=== PATIENT | female | born 1980 | race Caucasian/White ===

== ENCOUNTER → 2020-10-20 15:29 | Outpatient (BNVA) | payer OTHER, SELFPAY | PROVIDERS: PCP Internal Medicine; Visit Provider Student in an Organized Health Care Education/Training Program | DX: M45.0 Ankylosing spondylitis of multiple sites in spine (principal); M79.7 Fibromyalgia | CPT/HCPCS: 99212 ==

== ENCOUNTER → 2021-01-24 16:05 | Outpatient (BNVA) | payer OTHER, SELFPAY | PROVIDERS: Visit Provider Student in an Organized Health Care Education/Training Program | DX: M45.0 Ankylosing spondylitis of multiple sites in spine (principal); M79.7 Fibromyalgia; G89.29 Other chronic pain | CPT/HCPCS: 99212 ==

== ENCOUNTER → 2021-07-25 13:00 | Outpatient (BNVA) | payer OTHER, SELFPAY | PROVIDERS: PCP Internal Medicine; Visit Provider Nurse Practitioner Family | DX: M45.0 Ankylosing spondylitis of multiple sites in spine (principal); M79.7 Fibromyalgia; G89.29 Other chronic pain | CPT/HCPCS: 99212 ==

== ENCOUNTER 2021-09-17 12:34 | Outpatient (REF) | payer OTHER, SELFPAY ==
[2021-09-17 12:51] LABS: MANUAL DIFF FLAG NO
[2021-09-17 13:04] LABS: Basophils Absolute Auto 0.1 X10*3/uL (0.0-0.2); Basophils Percent Auto 1.4 % (0-2); Eosinophils Absolute Auto 0.1 X10*3/uL (0.0-0.4); Eosinophils Percent Auto 0.8 % (0-4); Hematocrit 38.1 % (37.0-47.0); Hemoglobin 12.4 g/dl (12.0-16.0); Imm Gran Abs Auto 0.03 X10*3/uL (0.00-0.03); Imm Gran Pct Auto 0.3 % (0.0-0.4); Lymphocytes Absolute Auto 3.1 X10*3/uL (1.2-4.9); Lymphocytes Percent Auto 33.4 % (20-40); Mean Corpuscular HGB Conc 32.5 g/dl (31.0-35.0); Mean Corpuscular Hemoglobin 30.7 pg (27.0-33.0); Mean Corpuscular Volume 94.3 fL (80.0-98.0); Mean Platelet Volume 10.7 fL (9.4-12.3); Monocytes Absolute Auto 0.8 X10*3/uL (0.1-1.2); Monocytes Percent Auto 8.7 % (2-11); Neutrophils Absolute Auto 5.1 x10*3/uL (2.0-8.3); Neutrophils Percent Auto 55.4 % (45-73); Platelet Count 314 X10*3/uL (160-400); Red Blood Count 4.04 X10*6/uL (4.20-5.50); Red Cell Distribution Width 13.9 % (11.0-16.0); White Blood Count 9.3 X10*3/uL (4.8-10.8)
[2021-09-17 13:46] LABS: Alanine Aminotransferase 15 U/L (0-31); Albumin Level 4.3 g/dL (3.5-5.0); Alkaline Phosphatase 88 U/L (39-117); Anion Gap 18 (12-20); Aspartate Amino Transferase 21 U/L (5-31); Bilirubin Total 0.4 mg/dL (0.0-1.0); Blood Urea Nitrogen 13 mg/dL (9-16); C Reactive Protein 0.86 mg/dL (< or = 0.50); Calcium 9.5 mg/dL (8.4-10.2); Carbon Dioxide 23 mmol/L (22-29); Chloride 105 mmol/L (96-108); Estimated Glomerular Filt Rate > 60; Glucose Random 227 mg/dL (60-115); Potassium 3.8 mmol/L (3.3-5.1); Sodium 142 mmol/L (135-145); Total Protein 7.5 g/dL (6.5-8.0)
[2021-09-17 13:49] LABS: Erythrocyte Sedimentation Rate 33 MM/HR (0-20)
== END 2021-09-17 12:35 | disposition home or self-care (01) ==
LOC: HO.LAB 12:34
PROVIDERS: PCP Nurse Practitioner Family; Visit Provider Nurse Practitioner Family
DX: M45.0 Ankylosing spondylitis of multiple sites in spine (principal)
CPT/HCPCS: 36415; 80053; 85025; 85652; 86140

== ENCOUNTER 2022-04-08 13:46 | Outpatient (REF) | payer OTHER, SELFPAY ==
[2022-04-08 14:06] LABS: MANUAL DIFF FLAG NO
[2022-04-08 14:47] LABS: Basophils Absolute Auto 0.2 X10*3/uL (0.0-0.2); Basophils Percent Auto 0.8 % (0-2); Eosinophils Percent Auto 0.2 % (0-4); Hematocrit 46.7 % (37.0-47.0); Hemoglobin 15.1 g/dl (12.0-16.0); Imm Gran Abs Auto 0.07 X10*3/uL (0.00-0.03); Imm Gran Pct Auto 0.4 % (0.0-0.4); Lymphocytes Percent Auto 20.5 % (20-40); Mean Corpuscular HGB Conc 32.3 g/dl (31.0-35.0); Mean Corpuscular Hemoglobin 30.3 pg (27.0-33.0); Mean Corpuscular Volume 93.6 fL (80.0-98.0); Mean Platelet Volume 11.4 fL (9.4-12.3); Monocytes Absolute Auto 1.4 X10*3/uL (0.1-1.2); Monocytes Percent Auto 6.9 % (2-11); Neutrophils Percent Auto 71.2 % (45-73); Platelet Count 420 X10*3/uL (160-400); Red Blood Count 4.99 X10*6/uL (4.20-5.50); Red Cell Distribution Width 13.1 % (11.0-16.0); White Blood Count 19.6 X10*3/uL (4.8-10.8)
[2022-04-08 15:32] LABS: Erythrocyte Sedimentation Rate 29 MM/HR (0-20)
[2022-04-08 16:14] LABS: Alanine Aminotransferase 13 U/L (0-31); Aspartate Amino Transferase 13 U/L (5-31); C Reactive Protein 1.49 mg/dL (< or = 0.50); Estimated Glomerular Filt Rate 34
== END 2022-04-08 13:47 | disposition home or self-care (01) ==
LOC: HO.LAB 13:46
PROVIDERS: PCP Nurse Practitioner Family; Visit Provider Nurse Practitioner Family
DX: M45.0 Ankylosing spondylitis of multiple sites in spine (principal); M79.7 Fibromyalgia
CPT/HCPCS: 36415; 82565; 84450; 84460; 85025; 85652; 86140; 99212

== ENCOUNTER 2022-04-08 16:02 | Emergency (ER) | payer OTHER, SELFPAY ==
--- NOTE | ~2022-04-08 | CT_ITS ---
EXAMINATION: CT ABDOMEN AND PELVIS WITHOUT CONTRAST CLINICAL INFORMATION: Abdominal pain, diarrhea COMPARISON: None TECHNIQUE: Multidetector volumetric imaging was performed from the superior aspect of the liver through the pubic symphysis. Sagittal and coronal reformatted images were obtained on the technologist's workstation. This CT examination was performed using dose optimization techniques as appropriate, variously including the following: *Automated exposure control *Adjustment of mA and/or kV according to patient size (this includes techniques or standardized protocols for targeted exams where dose is matched to indication/reason for exam; i.e. extremities or head) *Use of iterative reconstruction technique DLP: 418 mGy-cm FINDINGS: LUNG BASES: The visualized lung bases are unremarkable. LIVER, GALLBLADDER, AND BILIARY TREE: The liver is normal in size, shape, and attenuation. No focal hepatic lesion or biliary ductal dilatation is present. The gallbladder is unremarkable with no evidence of radiopaque gallstones, gallbladder wall thickening, or obvious pericholecystic inflammatory changes. PANCREAS: Unremarkable. SPLEEN: Unremarkable. ADRENAL GLANDS: Unremarkable. KIDNEYS AND URETERS: The kidneys are normal in size, shape, and attenuation. No hydronephrosis, hydroureter, seen. No perinephric stranding. There is a 3 mm nonobstructing calcified stone in the upper pole left kidney. BLADDER: Unremarkable. GASTROINTESTINAL TRACT: The small and large bowel are unremarkable. The appendix is unremarkable. ABDOMINAL WALL: No significant hernia is appreciated. LYMPH NODES: Normal. VASCULAR: Unremarkable. PELVIC VISCERA: The uterus and adnexa are unremarkable. OSSEOUS STRUCTURES: Unremarkable. CT/CT abdomen pelvis wo IV con IMPRESSION: No acute inflammatory or infectious process Left nephrolithiasis
[2022-04-08 16:29] VITALS: BP 98/54; PULSE 110; O2SAT 95
[2022-04-08 16:34] VITALS: BP 138/72; PULSE 94; RESP 18; TEMP 36.5; O2SAT 99; BMI 25.7
--- NOTE | 2022-04-08 16:47 | ED_ITS ---
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 patient also states that she has taken her pain medication but the last dose was at noon. As per EMS her glucose-60 Related Data Home Medications Medication Instructions Recorded Confirmed atorvastatin 20 mg tablet 20 mg PO DAILY 05/30/20 04/08/22 diazepam 10 mg tablet 10 mg PO BID PRN 05/30/20 04/08/22 dicyclomine 10 mg capsule 10 mg PO QID 05/30/20 04/08/22 insulin aspart U-100 100 unit/mL 1 sliding scale dose subcut 05/30/20 04/08/22 subcutaneous solution (Novolog USEASDIRECTD U-100 Insulin aspart) loratadine 10 mg capsule 10 mg PO DAILY 05/30/20 04/08/22 losartan 100 mg tablet 100 mg PO DAILY 05/30/20 04/08/22 pseudoephedrine HCl 30 mg tablet 30 mg PO Q4-6H PRN 05/30/20 04/08/22 duloxetine 60 mg capsule,delayed 120 mg PO DAILY 07/25/21 04/08/22 release (Cymbalta) omeprazole 20 mg capsule,delayed 20 mg PO BID 07/25/21 04/08/22 release pregabalin 225 mg capsule (Lyrica) 225 mg PO BID 01/21/22 04/08/22 dextroamphetamine-amphetamine ER 20 mg PO DAILY 04/08/22 04/08/22 20 mg 24hr capsule,extend release (Adderall XR) fluticasone propionate 50 1 spray intranasal DAILY PRN 04/08/22 04/08/22 mcg/actuation nasal spray,suspension insulin glargine 100 unit/mL 27 unit subcut DAILY 04/08/22 04/08/22 subcutaneous solution (Lantus U-100 Insulin) Previous Rx's Medication Instructions Recorded tramadol 37.5 mg-acetaminophen 325 2 tab PO Q8H PRN pain #168 tabs 02/05/22 mg tablet (Ultracet) leflunomide 20 mg tablet 20 mg PO DAILY #28 tabs 03/13/22 tizanidine 4 mg tablet 4 mg PO TID PRN for muscle spasm 03/19/22 #90 tabs certolizumab pegol 400 mg/2 mL 200 mg subcut Q2W #1 ea 03/26/22 (200 mg/mL x2) subcutaneous syringe kit (Cimzia) nabumetone 750 mg tablet 750 mg PO BID #60 tabs 04/01/22 Allergies Allergy/AdvReac Type Severity Reaction Status Date / Time lisinopril [LISINOPRIL] Allergy Mild COUGH Verified 04/08/22 14:44 aspirin [ASA] Allergy Unknown GI UPSET Verified 04/08/22 14:44 Review of Systems Review of Systems: pertinent positives and negatives as stated in HPI 10 point review of systems is otherwise negative. PMFSH Past Medical History Source: nursing notes reviewed Medical History Ankylosing spondylitis Fibromyalgia Surgical History H/O oral surgery H/O wisdom tooth extraction Family History Family History Father HTN (hypertension) Mother Colitis Sister Fibromyalgia Social History Social History Alcohol intake: never Patient Tobacco Use Status: Former Tobacco user Advance Directives: No Advance Directives Information Provided: No Patient : No Physical Exam ED Vital Signs: Vital Signs - 24 hr 04/08/22 16:34 04/08/22 19:14 04/08/22 21:32 Temperature 97.7 F Pulse Rate 94 96 84 Respiratory Rate 18 18 18 Blood Pressure 138/72 126/59 L 119/50 L Pulse Oximetry 99 98 96 Oxygen Delivery Method Room Air Room Air Room Air BMI result Body Mass Index 25.7 VITAL SIGNS: Reviewed. GENERAL: Well developed, well nourished, in no acute distress. HEAD: Normocephalic/atraumatic EYES: PERRLA, EOMI EARS: Ext canals without abnormality OROPHARYNX: no oral lesions noted, posterior pharynx clear, dry mucosa NECK: Supple, no adenopathy LUNGS: Normal breath sounds. No adventitious sounds or accessory muscle use. SpO2<99> CARDIOVASCULAR: Regular rate and rhythm without noted murmurs, no JVD or lower extremity edema. ABDOMEN: Soft, non-tender, non-distended with bowel sounds. MUSCULOSKELETAL: No tenderness, deformities, or effusions noted on gross inspection. EXTREMITIES: No cyanosis, clubbing or edema. SKIN: Inspection of the skin reveals no rashes NEUROLOGIC: Alert and oriented x 4. Strength and sensation to light touch were grossly intact x 4. Course Course Course Narrative: 41-year-old female with history and clinical presentation consistent with symptoms most likely due to low blood sugar although patient does not feel that this is accurate. She is noted to have been recently found to have a leukocytosis on her lab work and denies any steroid use. Otherwise she denies any fever, chills she does states that she has had some diarrhea but says that this happens intermittently due to her IBS. Review of all investigations negative for acute evidence infection in the abdomen, urine, urine test is negative and patient denies any new cough/shortness of breath and has remained afebrile throughout her stay. She has received IV fluids and lab work is otherwise without acute findings from baseline. Obtained of procalcitonin to further evaluate the noted leukocytosis, this was not consistent with a bacterial etiology and suspect that the elevated white blood cells are secondary to stress response, possibly patient's nausea and vomiting. She was informed of all results and strongly encouraged to follow-up with her primary care provider and further evaluate the leukocytosis. Medical Decision Making Lab Data Result diagrams: 04/08/22 16:40 04/08/22 16:40 Labs: Lab Results 04/08/22 04/08/22 04/08/22 Range/Units 16:40 16:40 16:40 WBC 22.8 H (4.8-10.8) X10*3/uL RBC 4.82 (4.20-5.50) X10*6/uL Hgb 14.7 (12.0-16.0) g/dl Hct 44.6 (37.0-47.0) % MCV 92.5 (80.0-98.0) fL MCH 30.5 (27.0-33.0) pg MCHC 33.0 (31.0-35.0) g/dl RDW 13.0 (11.0-16.0) % Plt Count 367 (160-400) X10*3/uL MPV 11.4 (9.4-12.3) fL Immature Gran % (Auto) 0.6 H (0.0-0.4) % Neut % (Auto) 81.5 H (45-73) % Lymph % (Auto) 9.3 L (20-40) % [place] % (Auto) 7.8 (2-11) % Eos % (Auto) 0.1 (0-4) % Baso % (Auto) 0.7 (0-2) % Lymph # (Auto) 2.1 (1.2-4.9) X10*3/uL [place] # (Auto) 1.8 H (0.1-1.2) X10*3/uL Eos # (Auto) 0.0 (0.0-0.4) X10*3/uL Baso # (Auto) 0.2 (0.0-0.2) X10*3/uL Abs Immat Gran (auto) 0.13 H (0.00-0.03) X10*3/uL Absolute Neuts (auto) 18.6 H (2.0-8.3) x10*3/uL Absolute Nucleated RBC 0.000 (0.0-0.012) X10*3/uL Nucleated RBC % (auto) 0.0 (0.0-0.2) /100WBC Smear Tech's Comments VERIFIED D-Dimer High Sensitivty NG/ML Sodium 137 (135-145) mmol/L Potassium 4.1 (3.3-5.1) mmol/L Chloride 99 (96-108) mmol/L Carbon Dioxide 23 (22-29) mmol/L Anion Gap 19 (12-20) BUN 24 H D (9-16) mg/dL Creatinine 1.86 H (0.5-1.4) mg/dL Estim Creat Clear Calc 32.1 Estimated GFR 30 POC Glucose (60-115) mg/dL Random Glucose 125 H (60-115) mg/dL Lactic Acid (0.5-2.0) mmol/L Calcium 9.6 (8.4-10.2) mg/dL Magnesium 2.1 (1.6-2.6) mg/dL Total Bilirubin 0.4 (0.0-1.0) mg/dL AST 14 (5-31) U/L ALT 14 (0-31) U/L Alkaline Phosphatase 98 (39-117) U/L Troponin I High Sens (<3.5-17.0) ng/L Total Protein 8.4 H (6.5-8.0) g/dL Albumin 4.7 (3.5-5.0) g/dL Procalcitonin 0.11 ng/mL Urine Color Urine Appearance Urine pH (5.0-9.0) Ur Specific [place] (1.005-1.025) Urine Protein (Neg-Trace) mg/dL Urine Glucose (UA) (Negative) mg/dL Urine Ketones (Negative) mg/dL Urine Blood (Negative) Urine Nitrite (Negative) Ur Leukocyte Esterase (Negative) Urine RBC (0-2) /HPF Urine WBC (0-5) /HPF Ur Squamous Epith Cells (0-2) /HPF Urine Bacteria (None Seen) Hyaline Casts (0-2) /LPF Urine Test (NEGATIVE) COVID-19 ([facility] CARLOS) (Negative) COVID-19 Clin Com 04/08/22 04/08/22 04/08/22 Range/Units 16:40 17:01 17:10 WBC (4.8-10.8) X10*3/uL RBC (4.20-5.50) X10*6/uL Hgb (12.0-16.0) g/dl Hct (37.0-47.0) % MCV (80.0-98.0) fL MCH (27.0-33.0) pg MCHC (31.0-35.0) g/dl RDW (11.0-16.0) % Plt Count (160-400) X10*3/uL MPV (9.4-12.3) fL Immature Gran % (Auto) (0.0-0.4) % Neut % (Auto) (45-73) % Lymph % (Auto) (20-40) % [place] % (Auto) (2-11) % Eos % (Auto) (0-4) % Baso % (Auto) (0-2) % Lymph # (Auto) (1.2-4.9) X10*3/uL [place] # (Auto) (0.1-1.2) X10*3/uL Eos # (Auto) (0.0-0.4) X10*3/uL Baso # (Auto) (0.0-0.2) X10*3/uL Abs Immat Gran (auto) (0.00-0.03) X10*3/uL Absolute Neuts (auto) (2.0-8.3) x10*3/uL Absolute Nucleated RBC (0.0-0.012) X10*3/uL Nucleated RBC % (auto) (0.0-0.2) /100WBC Smear Tech's Comments D-Dimer High Sensitivty NG/ML Sodium (135-145) mmol/L Potassium (3.3-5.1) mmol/L Chloride (96-108) mmol/L Carbon Dioxide (22-29) mmol/L Anion Gap (12-20) BUN (9-16) mg/dL Creatinine (0.5-1.4) mg/dL Estim Creat Clear Calc Estimated GFR POC Glucose 108 (60-115) mg/dL Random Glucose (60-115) mg/dL Lactic Acid 1.2 (0.5-2.0) mmol/L Calcium (8.4-10.2) mg/dL Magnesium (1.6-2.6) mg/dL Total Bilirubin (0.0-1.0) mg/dL AST (5-31) U/L ALT (0-31) U/L Alkaline Phosphatase (39-117) U/L Troponin I High Sens 5.4 (<3.5-17.0) ng/L Total Protein (6.5-8.0) g/dL Albumin (3.5-5.0) g/dL Procalcitonin ng/mL Urine Color Urine Appearance Urine pH (5.0-9.0) Ur Specific [place] (1.005-1.025) Urine Protein (Neg-Trace) mg/dL Urine Glucose (UA) (Negative) mg/dL Urine Ketones (Negative) mg/dL Urine Blood (Negative) Urine Nitrite (Negative) Ur Leukocyte Esterase (Negative) Urine RBC (0-2) /HPF Urine WBC (0-5) /HPF Ur Squamous Epith Cells (0-2) /HPF Urine Bacteria (None Seen) Hyaline Casts (0-2) /LPF Urine Test (NEGATIVE) COVID-19 ([facility]IS CRALOS) (Negative) COVID-19 Clin Com 04/08/22 04/08/22 04/08/22 Range/Units 17:23 18:46 18:46 WBC (4.8-10.8) X10*3/uL RBC (4.20-5.50) X10*6/uL Hgb (12.0-16.0) g/dl Hct (37.0-47.0) % MCV (80.0-98.0) fL MCH (27.0-33.0) pg MCHC (31.0-35.0) g/dl RDW (11.0-16.0) % Plt Count (160-400) X10*3/uL MPV (9.4-12.3) fL Immature Gran % (Auto) (0.0-0.4) % Neut % (Auto) (45-73) % Lymph % (Auto) (20-40) % [place] % (Auto) (2-11) % Eos % (Auto) (0-4) % Baso % (Auto) (0-2) % Lymph # (Auto) (1.2-4.9) X10*3/uL [place] # (Auto) (0.1-1.2) X10*3/uL Eos # (Auto) (0.0-0.4) X10*3/uL Baso # (Auto) (0.0-0.2) X10*3/uL Abs Immat Gran (auto) (0.00-0.03) X10*3/uL Absolute Neuts (auto) (2.0-8.3) x10*3/uL Absolute Nucleated RBC (0.0-0.012) X10*3/uL Nucleated RBC % (auto) (0.0-0.2) /100WBC Smear Tech's Comments D-Dimer High Sensitivty NG/ML Sodium (135-145) mmol/L Potassium (3.3-5.1) mmol/L Chloride (96-108) mmol/L Carbon Dioxide (22-29) mmol/L Anion Gap (12-20) BUN (9-16) mg/dL Creatinine (0.5-1.4) mg/dL Estim Creat Clear Calc Estimated GFR POC Glucose (60-115) mg/dL Random Glucose (60-115) mg/dL Lactic Acid (0.5-2.0) mmol/L Calcium (8.4-10.2) mg/dL Magnesium (1.6-2.6) mg/dL Total Bilirubin (0.0-1.0) mg/dL AST (5-31) U/L ALT (0-31) U/L Alkaline Phosphatase (39-117) U/L Troponin I High Sens (<3.5-17.0) ng/L Total Protein (6.5-8.0) g/dL Albumin (3.5-5.0) g/dL Procalcitonin ng/mL Urine Color Dark Yellow Urine Appearance Cloudy Urine pH 5.0 (5.0-9.0) Ur Specific [place] >= 1.030 H (1.005-1.025) Urine Protein 100 (2+) H (Neg-Trace) mg/dL Urine Glucose (UA) 500 H (Negative) mg/dL Urine Ketones 15 (Negative) mg/dL Urine Blood Negative (Negative) Urine Nitrite Negative (Negative) Ur Leukocyte Esterase Trace H (Negative) Urine RBC 0-2 (0-2) /HPF Urine WBC 0-5 (0-5) /HPF Ur Squamous Epith Cells 11-20 (0-2) /HPF Urine Bacteria 4+ (None Seen) Hyaline Casts 3-5 (0-2) /LPF Urine Test NEGATIVE (NEGATIVE) COVID-19 ([facility]IS CARLOS) Negative (Negative) COVID-19 Clin Com See Note 04/08/22 04/08/22 Range/Units 19:23 21:31 WBC (4.8-10.8) X10*3/uL RBC (4.20-5.50) X10*6/uL Hgb (12.0-16.0) g/dl Hct (37.0-47.0) % MCV (80.0-98.0) fL MCH (27.0-33.0) pg MCHC (31.0-35.0) g/dl RDW (11.0-16.0) % Plt Count (160-400) X10*3/uL MPV (9.4-12.3) fL Immature Gran % (Auto) (0.0-0.4) % Neut % (Auto) (45-73) % Lymph % (Auto) (20-40) % [place] % (Auto) (2-11) % Eos % (Auto) (0-4) % Baso % (Auto) (0-2) % Lymph # (Auto) (1.2-4.9) X10*3/uL [place] # (Auto) (0.1-1.2) X10*3/uL Eos # (Auto) (0.0-0.4) X10*3/uL Baso # (Auto) (0.0-0.2) X10*3/uL Abs Immat Gran (auto) (0.00-0.03) X10*3/uL Absolute Neuts (auto) (2.0-8.3) x10*3/uL Absolute Nucleated RBC (0.0-0.012) X10*3/uL Nucleated RBC % (auto) (0.0-0.2) /100WBC Smear Tech's Comments D-Dimer High Sensitivty 218 NG/ML Sodium (135-145) mmol/L Potassium (3.3-5.1) mmol/L Chloride (96-108) mmol/L Carbon Dioxide (22-29) mmol/L Anion Gap (12-20) BUN (9-16) mg/dL Creatinine (0.5-1.4) mg/dL Estim Creat Clear Calc Estimated GFR POC Glucose 210 H (60-115) mg/dL Random Glucose (60-115) mg/dL Lactic Acid (0.5-2.0) mmol/L Calcium (8.4-10.2) mg/dL Magnesium (1.6-2.6) mg/dL Total Bilirubin (0.0-1.0) mg/dL AST (5-31) U/L ALT (0-31) U/L Alkaline Phosphatase (39-117) U/L Troponin I High Sens (<3.5-17.0) ng/L Total Protein (6.5-8.0) g/dL Albumin (3.5-5.0) g/dL Procalcitonin ng/mL Urine Color Urine Appearance Urine pH (5.0-9.0) Ur Specific [place] (1.005-1.025) Urine Protein (Neg-Trace) mg/dL Urine Glucose (UA) (Negative) mg/dL Urine Ketones (Negative) mg/dL Urine Blood (Negative) Urine Nitrite (Negative) Ur Leukocyte Esterase (Negative) Urine RBC (0-2) /HPF Urine WBC (0-5) /HPF Ur Squamous Epith Cells (0-2) /HPF Urine Bacteria (None Seen) Hyaline Casts (0-2) /LPF Urine Test (NEGATIVE) COVID-19 ([facility] CARLOS) (Negative) COVID-19 Clin Com ECG Data Attestation: I personally reviewed and interpreted this ECG as follows: Prior ECG tracings: not available for review Interpretation: NSR. HR-93, no STEMI but ST depressions in lateral distribution, VT/QRS/QTc wnl. Discharge Plan Discharge Clinical Impression: Low blood sugar, Ankylosing spondylitis, Fibromyalgia, Chronic pain Patient Disposition: Home, Self-Care Instructions: Hypoglycemia in a Person with Diabetes (ED) Additional Instructions: 1. Resume all home medications as prescribed. 2. It is highly recommended that you follow-up with your primary care provider for further investigation regarding the elevated white blood cell count. In addition, your primary care provider can follow-up on the culture results. Return to the ER for worsening symptoms. Prescriptions: No Action pregabalin [Lyrica] 225 mg capsule 225 mg PO BID tramadol-acetaminophen [Ultracet] 37.5-325 mg tablet 2 tab PO Q8H PRN (Reason: pain) Qty: 168 1RF Rx Instructions: take 1-2 tabs every 8 hours as needed leflunomide 20 mg tablet 20 mg PO DAILY Qty: 28 0RF tizanidine 4 mg tablet 4 mg PO TID PRN (Reason: for muscle spasm) Qty: 90 0RF Cimzia 400 mg/2 mL (200 mg/mL x 2) syringe kit 200 mg subcut Q2W Qty: 1 0RF nabumetone 750 mg tablet 750 mg PO BID Qty: 60 0RF dicyclomine 10 mg capsule 10 mg PO QID losartan 100 mg tablet 100 mg PO DAILY insulin aspart U-100 [Novolog U-100 Insulin aspart] 100 unit/mL solution 1 sliding scale dose subcut USEASDIRECTD atorvastatin 20 mg tablet 20 mg PO DAILY diazepam 10 mg tablet 10 mg PO BID PRN loratadine 10 mg capsule 10 mg PO DAILY pseudoephedrine HCl 30 mg tablet 30 mg PO Q4-6H PRN Rx Instructions: DNExceed 4 doses/24h duloxetine [Cymbalta] 60 mg capsule,delayed release(DR/EC) 120 mg PO DAILY omeprazole 20 mg capsule,delayed release(DR/EC) 20 mg PO BID fluticasone propionate 50 mcg/actuation spray,suspension 1 spray intranasal DAILY PRN Rx Instructions: administer into each nostril dextroamphetamine-amphetamine [Adderall XR] 20 mg capsule,extended release 24hr 20 mg PO DAILY insulin glargine [Lantus U-100 Insulin] 100 unit/mL solution 27 unit subcut DAILY Referrals: Karen Kolb NP [Primary Care Provider] -
[2022-04-08 17:08] LABS: Basophils Absolute Auto 0.2 X10*3/uL (0.0-0.2); Basophils Percent Auto 0.7 % (0-2); Eosinophils Percent Auto 0.1 % (0-4); Hematocrit 44.6 % (37.0-47.0); Hemoglobin 14.7 g/dl (12.0-16.0); Imm Gran Abs Auto 0.13 X10*3/uL (0.00-0.03); Imm Gran Pct Auto 0.6 % (0.0-0.4); Lymphocytes Absolute Auto 2.1 X10*3/uL (1.2-4.9); Lymphocytes Percent Auto 9.3 % (20-40); MANUAL DIFF FLAG SCAN; Mean Corpuscular Hemoglobin 30.5 pg (27.0-33.0); Mean Corpuscular Volume 92.5 fL (80.0-98.0); Mean Platelet Volume 11.4 fL (9.4-12.3); Monocytes Absolute Auto 1.8 X10*3/uL (0.1-1.2); Monocytes Percent Auto 7.8 % (2-11); Neutrophils Absolute Auto 18.6 x10*3/uL (2.0-8.3); Neutrophils Percent Auto 81.5 % (45-73); Platelet Count 367 X10*3/uL (160-400); Red Blood Count 4.82 X10*6/uL (4.20-5.50); SCAN SMEAR FLAG 1; White Blood Count 22.8 X10*3/uL (4.8-10.8)
[2022-04-08 17:13] LABS: Glucose, Whole Blood 108 mg/dL (60-115)
[2022-04-08 17:18] LABS: Alanine Aminotransferase 14 U/L (0-31); Albumin Level 4.7 g/dL (3.5-5.0); Alkaline Phosphatase 98 U/L (39-117); Anion Gap 19 (12-20); Aspartate Amino Transferase 14 U/L (5-31); Bilirubin Total 0.4 mg/dL (0.0-1.0); Blood Urea Nitrogen 24 mg/dL (9-16); Calcium 9.6 mg/dL (8.4-10.2); Carbon Dioxide 23 mmol/L (22-29); Chloride 99 mmol/L (96-108); Creatinine Clr Calc Pharmacy 32.1; Estimated Glomerular Filt Rate 30; Glucose Random 125 mg/dL (60-115); Magnesium 2.1 mg/dL (1.6-2.6); Potassium 4.1 mmol/L (3.3-5.1); Sodium 137 mmol/L (135-145); Total Protein 8.4 g/dL (6.5-8.0)
--- NOTE | 2022-04-08 17:24 | ECG_ITS ---
Test Reason : MED SIDE EFFECTS Blood Pressure : / mmHG Vent. Rate : 093 BPM Atrial Rate : 093 BPM P-R Int : 152 ms QRS Dur : 084 ms QT Int : 362 ms P-R-T Axes : 052 056 135 degrees QTc Int : 450 ms Normal sinus rhythm Cannot rule out Anterior infarct , age undetermined T wave abnormality, consider lateral ischemia Abnormal ECG No previous ECGs available Referred By: Jacque Last Electronically Signed By:KACI GUADALUPE
[2022-04-08] MEDS: 0.9 % Sodium Chloride 1,000 ML 999 ML IV ×2 (17:25→21:17)
[2022-04-08 17:28] LABS: Lactic Acid 1.2 mmol/L (0.5-2.0)
[2022-04-08] MEDS: ondansetron HCL 4 MG/2 ML VIAL IVPUSH (17:33)
[2022-04-08 17:42] LABS: SLIDE REVIEW VERIFIED
[2022-04-08 17:56] LABS: IDNOW Serial# 16C4AD1C
[2022-04-08 17:57] LABS: COVID-19 Test Negative (Negative)
[2022-04-08] MEDS: cefEPime HCl 1 GM in 0.9 % Sodium Chloride 50 ML IV (18:48)
[2022-04-08 19:00] LABS: Appearance Urine Cloudy; Color Urine Dark Yellow; Glucose Urine UA 500 mg/dL (Negative); Leukocyte Esterase Urine Trace (Negative); Nitrite Urine Negative (Negative); Specific Gravity - Urine >= 1.030 (1.005-1.025); UMIC TRIGGER UACC YES; Urine Blood Negative (Negative); Urine Ketones 15 mg/dL (Negative); Urine Protein 100 (2+) mg/dL (Neg-Trace)
[2022-04-08 19:04] LABS: UPreg QC Valid YES; Urine Pregnancy NEGATIVE (NEGATIVE)
[2022-04-08 19:14] VITALS: BP 126/59; PULSE 96; RESP 18; O2SAT 98
[2022-04-08 19:14] LABS: Bacteria Urine 4+ (None Seen); RBC Urine 0-2 /HPF (0-2); WBC Urine 0-5 /HPF (0-5)
[2022-04-08 19:16] LABS: Troponin-I High Sensitivity 5.4 ng/L (<3.5-17.0)
[2022-04-08 19:36] LABS: Procalcitonin 0.11 ng/mL
[2022-04-08 21:04] LABS: D Dimer High Sensitivity 218 NG/ML
[2022-04-08 21:32] VITALS: BP 119/50; PULSE 84; RESP 18; O2SAT 96
[2022-04-08 21:40] LABS: Glucose, Whole Blood 210 mg/dL (60-115)
== END 2022-04-08 23:04 | disposition home or self-care (01) ==
PROVIDERS: Physician Assistant Medical; Emergency Provider Student in an Organized Health Care Education/Training Program; PCP Nurse Practitioner Family
DX: E10.649 Type 1 diabetes mellitus with hypoglycemia without coma (principal); M45.9 Ankylosing spondylitis of unspecified sites in spine; M79.7 Fibromyalgia; G89.29 Other chronic pain; Z20.822 Contact with and (suspected) exposure to COVID-19; Z79.4 Long term (current) use of insulin
CPT/HCPCS: 36415; 74176; 80053; 81001; 81003; 81025; 82947; 83605; 83735; 84145; 84484; 85025; 85379; 87040; 87635; 93005; 96361; 96365; 96375; 99285; J0692; J2405

== ENCOUNTER 2022-07-18 13:44 | Outpatient (REF) | payer OTHER, SELFPAY ==
--- NOTE | ~2022-07-18 | XR_ITS ---
EXAMINATION: XR SACROILIAC JOINTS CLINICAL INFORMATION: Ankylosing spondylitis COMPARISON: None TECHNIQUE: 3 views of the sacroiliac joints FINDINGS: Mild bilateral SI joint arthritis, with mild inferior spurring and mild bony sclerosis marginating the joint. No erosions are seen. No ankylosis is identified. No acute fractures seen. XR/XR sacroiliac joint min 3V IMPRESSION: Mild bilateral SI joint arthritis.
[2022-07-18 14:59] LABS: MANUAL DIFF FLAG NO
[2022-07-18 15:13] LABS: Basophils Absolute Auto 0.1 X10*3/uL (0.0-0.2); Basophils Percent Auto 1.2 % (0-2); Eosinophils Percent Auto 0.2 % (0-4); Hematocrit 39.9 % (37.0-47.0); Hemoglobin 12.6 g/dl (12.0-16.0); Imm Gran Abs Auto 0.04 X10*3/uL (0.00-0.03); Imm Gran Pct Auto 0.4 % (0.0-0.4); Lymphocytes Absolute Auto 2.7 X10*3/uL (1.2-4.9); Lymphocytes Percent Auto 24.5 % (20-40); Mean Corpuscular HGB Conc 31.6 g/dl (31.0-35.0); Mean Corpuscular Hemoglobin 29.1 pg (27.0-33.0); Mean Corpuscular Volume 92.1 fL (80.0-98.0); Mean Platelet Volume 11.7 fL (9.4-12.3); Monocytes Absolute Auto 0.7 X10*3/uL (0.1-1.2); Monocytes Percent Auto 6.1 % (2-11); Neutrophils Absolute Auto 7.5 x10*3/uL (2.0-8.3); Neutrophils Percent Auto 67.6 % (45-73); Platelet Count 306 X10*3/uL (160-400); Red Blood Count 4.33 X10*6/uL (4.20-5.50); White Blood Count 11.1 X10*3/uL (4.8-10.8)
[2022-07-18 15:39] LABS: Alanine Aminotransferase 10 U/L (0-31); Aspartate Amino Transferase 11 U/L (5-31); C Reactive Protein 1.09 mg/dL (< or = 0.50); Estimated Glomerular Filt Rate 54
[2022-07-18 15:57] LABS: Erythrocyte Sedimentation Rate 34 MM/HR (0-20)
== END 2022-07-18 13:45 | disposition home or self-care (01) ==
LOC: HO.LAB 13:44
PROVIDERS: PCP Nurse Practitioner Family; Visit Provider Nurse Practitioner Family
DX: M45.0 Ankylosing spondylitis of multiple sites in spine (principal); Z79.899 Other long term (current) drug therapy
CPT/HCPCS: 36415; 72202; 82565; 84450; 84460; 85025; 85652; 86140; 99212

== ENCOUNTER 2022-09-16 14:01 | Outpatient (REF) | payer OTHER, SELFPAY ==
--- NOTE | ~2022-09-16 | XR_ITS ---
EXAMINATION: XR LUMBOSACRAL SPINE WITH OBLIQUES CLINICAL INFORMATION: Spondylosis without myelopathy or radiculopathy. COMPARISON: None TECHNIQUE: AP, both oblique, and lateral (neutral, flexion and extension) views of the lumbar spine. Lateral view of the lumbosacral junction. FINDINGS: The vertebral bodies and posterior elements are normal. The disc spaces are preserved and the vertebral alignment is normal. No instability is seen with flexion or extension. No spondylolysis defect is seen on the oblique views. The paraspinal soft tissues are normal. XR/XR lumbar spine 6V w bending IMPRESSION: Unremarkable examination.
[2022-09-16 15:13] LABS: MANUAL DIFF FLAG NO
[2022-09-16 15:46] LABS: Basophils Absolute Auto 0.1 X10*3/uL (0.0-0.2); Basophils Percent Auto 1.3 % (0-2); Eosinophils Absolute Auto 0.1 X10*3/uL (0.0-0.4); Eosinophils Percent Auto 0.7 % (0-4); Hematocrit 40.1 % (37.0-47.0); Imm Gran Abs Auto 0.03 X10*3/uL (0.00-0.03); Imm Gran Pct Auto 0.3 % (0.0-0.4); Lymphocytes Absolute Auto 3.5 X10*3/uL (1.2-4.9); Lymphocytes Percent Auto 34.5 % (20-40); Mean Corpuscular HGB Conc 32.4 g/dl (31.0-35.0); Mean Corpuscular Hemoglobin 29.5 pg (27.0-33.0); Mean Corpuscular Volume 91.1 fL (80.0-98.0); Mean Platelet Volume 12.1 fL (9.4-12.3); Monocytes Absolute Auto 0.8 X10*3/uL (0.1-1.2); Monocytes Percent Auto 8.2 % (2-11); Neutrophils Absolute Auto 5.6 x10*3/uL (2.0-8.3); Platelet Count 367 X10*3/uL (160-400); Red Cell Distribution Width 13.8 % (11.0-16.0); White Blood Count 10.2 X10*3/uL (4.8-10.8)
[2022-09-16 16:08] LABS: Alanine Aminotransferase 16 U/L (0-31); Aspartate Amino Transferase 18 U/L (5-31); C Reactive Protein 0.44 mg/dL (< or = 0.50); Estimated Glomerular Filt Rate > 60
[2022-09-16 16:21] LABS: Erythrocyte Sedimentation Rate 31 MM/HR (0-20)
== END 2022-09-16 14:02 | disposition home or self-care (01) ==
LOC: HO.LAB 14:01
PROVIDERS: Absent Provider Nurse Practitioner Family; PCP Nurse Practitioner Family; Visit Provider Nurse Practitioner Family
DX: M45.9 Ankylosing spondylitis of unspecified sites in spine (principal); M47.816 Spondylosis without myelopathy or radiculopathy, lumbar region; M79.7 Fibromyalgia; Z79.899 Other long term (current) drug therapy
CPT/HCPCS: 72114; 82565; 84450; 84460; 85025; 85652; 86140; 99202

== ENCOUNTER → 2022-10-17 14:49 | Outpatient (BNVA) | payer OTHER, SELFPAY | PROVIDERS: PCP Nurse Practitioner Family; Visit Provider Nurse Practitioner Family | DX: M45.9 Ankylosing spondylitis of unspecified sites in spine (principal); M79.7 Fibromyalgia | CPT/HCPCS: 99212 ==

== ENCOUNTER 2022-10-24 12:18 | Day surgery (SDC) | payer OTHER, SELFPAY ==
[2022-10-21 15:57] VITALS: BMI 29.2
--- NOTE | 2022-10-23 10:23 | P.CONAN_ITS ---
Documented by User: Tammy Claros NP 10/23/22 10:24 HPI - Anesthesia Eval Consult details Narrative: 41yo F for Bilateral Therapeutic Sacroiliac Joint Steroid Injection PMFSH Active Problems Active Problems: All Active Problems (Updated 09/26/22 @ 12:08 by Laurie Marlow NP) Lumbar spondylosis (Acute) Bilateral sacroiliitis (Acute) Medication monitoring encounter (Acute) Chronic pain (Acute) Fibromyalgia (Acute) Ankylosing spondylitis (Acute) Past Medical History Medical History (Updated 10/24/22 @ 11:44 by Ita Prater RN) Ankylosing spondylitis Fibromyalgia HTN (hypertension) Family History Family History Father HTN (hypertension) Mother Colitis Sister Fibromyalgia Surgical History Surgical History H/O oral surgery H/O wisdom tooth extraction Social History Social History Alcohol intake: never Patient Tobacco Use Status: Former Tobacco user Use of substances other than those prescribed or required for medical reasons: Yes Are you DNR?: No Advance Directives: No Advance Directives Information Provided: Yes Meds Allergies Allergy/AdvReac Type Severity Reaction Status Date / Time lisinopril [LISINOPRIL] Allergy Mild COUGH Verified 10/17/22 15:57 aspirin [ASA] Allergy Unknown GI UPSET Verified 10/17/22 15:57 Home Medications Medication Instructions Recorded Confirmed Last Taken Type atorvastatin 20 mg tablet 20 mg PO DAILY 05/30/20 10/17/22 Unknown History diazepam 10 mg tablet 10 mg PO BID PRN Anxiety 05/30/20 10/17/22 10/24/22 History dicyclomine 10 mg capsule 10 mg PO QID 05/30/20 10/17/22 10/24/22 History losartan 100 mg tablet 100 mg PO DAILY 05/30/20 10/17/22 10/24/22 History pseudoephedrine HCl 30 mg tablet 30 mg PO Q4-6H PRN 05/30/20 10/17/22 Unknown History duloxetine 60 mg capsule,delayed 120 mg PO DAILY 07/25/21 10/17/22 10/24/22 History release (Cymbalta) omeprazole 20 mg capsule,delayed 20 mg PO BID 07/25/21 10/17/22 10/24/22 History release pregabalin 225 mg capsule (Lyrica) 225 mg PO BID 01/21/22 10/17/22 10/24/22 History dextroamphetamine-amphetamine ER 20 mg PO DAILY 04/08/22 10/17/22 Unknown History 20 mg 24hr capsule,extend release (Adderall XR) fluticasone propionate 50 1 spray intranasal DAILY PRN 04/08/22 10/17/22 Unknown History mcg/actuation nasal spray,suspension acidophilus-sporogenes 35 1 tab PO DAILY 10/17/22 10/17/22 Unknown History million-25 million cell tablet (Acidophilus Ex Str (L. sporog)) amlodipine 10 mg tablet 10 mg PO DAILY 10/17/22 10/17/22 Unknown History amoxicillin 875 mg-potassium 1 tab PO Q12H 10/17/22 10/17/22 Unknown History clavulanate 125 mg tablet biotin 10 mg tablet 10 mg PO DAILY 10/17/22 10/17/22 Unknown History calcium carbonate 500 mg-vitamin 1 tab PO BID 10/17/22 10/17/22 Unknown History D3 10 mcg (400 unit) tablet (Calcium 500 With D) clonidine HCl 0.1 mg tablet 0.1 mg PO BID 10/17/22 10/17/22 Unknown History dextroamphetamine-amphetamine ER 5 5 mg PO DAILY 10/17/22 10/17/22 Unknown History mg 24hr capsule,extend release dextrose 40 % oral gel (Glutose-15) g PO 10/17/22 10/17/22 Unknown History fluconazole 150 mg tablet 150 mg PO QWEEK candidiasis 10/17/22 10/17/22 Unknown History folic acid 1 mg tablet 1 mg PO DAILY 10/17/22 10/17/22 Unknown History insulin aspart U-100 100 unit/mL subcut 10/17/22 10/17/22 10/24/22 History (3 mL) subcutaneous pen (Novolog FlexPen U-100 Insulin aspart) insulin glargine 100 unit/mL (3 unit subcut 10/17/22 10/17/22 10/24/22 History mL) subcutaneous pen (Lantus Solostar U-100 Insulin) ipratropium bromide 21 mcg (0.03 intranasal 10/17/22 10/17/22 Unknown History %) nasal spray ketoconazole 2 % shampoo topical 10/17/22 10/17/22 Unknown History lamotrigine 100 mg tablet 100 mg PO DAILY 10/17/22 10/17/22 10/24/22 History lamotrigine 25 mg tablet 50 mg PO DAILY 10/17/22 10/17/22 10/24/22 History loperamide 2 mg tablet 0 mg PO 10/17/22 10/17/22 10/24/22 History (Anti-Diarrheal (loperamide)) loratadine 10 mg tablet 10 mg PO DAILY 10/17/22 10/17/22 10/24/22 History norgestrel 0.3 mg-ethinyl 1 tab PO DAILY 10/17/22 10/17/22 Unknown History estradiol 30 mcg tablet (Cryselle (28)) omega 6-pno-brd-fish oil 300 0 cap PO 10/17/22 10/17/22 Unknown History mg-1,000 mg capsule simethicone 125 mg chewable tablet 125 mg PO QID PRN 10/17/22 10/17/22 Unknown History (Gas Relief Extra Strength) sodium chloride 0.65 % nasal spray spray intranasal 10/17/22 10/17/22 Unknown History aerosol (Deep Sea Nasal) vitamin B complex-folic acid 0.4 1 tab PO DAILY 10/17/22 10/17/22 Unknown History mg tablet Exam Exam Date and Time: October 23, 2022 1023 Height,Weight and Vital Signs: Height 5 ft Weight 68.039 kg Pertinent Lab Results Pertinent Lab Results: Laboratory Tests 09/16/22 09/16/22 15:11 15:11 WBC 10.2 Hgb 13.0 Hct 40.1 Plt Count 367 Creatinine 0.81 Assessment and Plan Assessment Anesthesia Assessment: Chart Reviewed Documented by User: Jos Hunter MD 10/24/22 13:25 [facility] Past Medical History Medical History (Updated 10/24/22 @ 11:44 by Ita Prater RN) Ankylosing spondylitis Fibromyalgia HTN (hypertension) Family History Family History Father HTN (hypertension) Mother Colitis Sister Fibromyalgia Family history of problems with anesthesia: No Surgical History Surgical History H/O oral surgery H/O wisdom tooth extraction History of Problems with Anesthesia: No Social History Social History Alcohol intake: never Patient Tobacco Use Status: Former Tobacco user Use of substances other than those prescribed or required for medical reasons: Yes Are you DNR?: No Advance Directives: No Advance Directives Information Provided: Yes Meds Allergies Allergy/AdvReac Type Severity Reaction Status Date / Time lisinopril [LISINOPRIL] Allergy Mild COUGH Verified 10/17/22 15:57 aspirin [ASA] Allergy Unknown GI UPSET Verified 10/17/22 15:57 Home Medications Medication Instructions Recorded Confirmed Last Taken Type atorvastatin 20 mg tablet 20 mg PO DAILY 05/30/20 10/17/22 Unknown History diazepam 10 mg tablet 10 mg PO BID PRN Anxiety 05/30/20 10/17/22 10/24/22 History dicyclomine 10 mg capsule 10 mg PO QID 05/30/20 10/17/22 10/24/22 History losartan 100 mg tablet 100 mg PO DAILY 05/30/20 10/17/22 10/24/22 History pseudoephedrine HCl 30 mg tablet 30 mg PO Q4-6H PRN 05/30/20 10/17/22 Unknown History duloxetine 60 mg capsule,delayed 120 mg PO DAILY 07/25/21 10/17/22 10/24/22 History release (Cymbalta) omeprazole 20 mg capsule,delayed 20 mg PO BID 07/25/21 10/17/22 10/24/22 History release pregabalin 225 mg capsule (Lyrica) 225 mg PO BID 01/21/22 10/17/22 10/24/22 History dextroamphetamine-amphetamine ER 20 mg PO DAILY 04/08/22 10/17/22 Unknown Histo ry 20 mg 24hr capsule,extend release (Adderall XR) fluticasone propionate 50 1 spray intranasal DAILY PRN 04/08/22 10/17/22 Unknown History mcg/actuation nasal spray,suspension acidophilus-sporogenes 35 1 tab PO DAILY 10/17/22 10/17/22 Unknown History million-25 million cell tablet (Acidophilus Ex Str (L. sporog)) amlodipine 10 mg tablet 10 mg PO DAILY 10/17/22 10/17/22 Unknown History amoxicillin 875 mg-potassium 1 tab PO Q12H 10/17/22 10/17/22 Unknown History clavulanate 125 mg tablet biotin 10 mg tablet 10 mg PO DAILY 10/17/22 10/17/22 Unknown History calcium carbonate 500 mg-vitamin 1 tab PO BID 10/17/22 10/17/22 Unknown History D3 10 mcg (400 unit) tablet (Calcium 500 With D) clonidine HCl 0.1 mg tablet 0.1 mg PO BID 10/17/22 10/17/22 Unknown History dextroamphetamine-amphetamine ER 5 5 mg PO DAILY 10/17/22 10/17/22 Unknown History mg 24hr capsule,extend release dextrose 40 % oral gel (Glutose-15) g PO 10/17/22 10/17/22 Unknown History fluconazole 150 mg tablet 150 mg PO QWEEK candidiasis 10/17/22 10/17/22 Unknown History folic acid 1 mg tablet 1 mg PO DAILY 10/17/22 10/17/22 Unknown History insulin aspart U-100 100 unit/mL subcut 10/17/22 10/17/22 10/24/22 History (3 mL) subcutaneous pen (Novolog FlexPen U-100 Insulin aspart) insulin glargine 100 unit/mL (3 unit subcut 10/17/22 10/17/22 10/24/22 History mL) subcutaneous pen (Lantus Solostar U-100 Insulin) ipratropium bromide 21 mcg (0.03 intranasal 10/17/22 10/17/22 Unknown History %) nasal spray ketoconazole 2 % shampoo topical 10/17/22 10/17/22 Unknown History lamotrigine 100 mg tablet 100 mg PO DAILY 10/17/22 10/17/22 10/24/22 History lamotrigine 25 mg tablet 50 mg PO DAILY 10/17/22 10/17/22 10/24/22 History loperamide 2 mg tablet 0 mg PO 10/17/22 10/17/22 10/24/22 History (Anti-Diarrheal (loperamide)) loratadine 10 mg tablet 10 mg PO DAILY 10/17/22 10/17/22 10/24/22 History norgestrel 0.3 mg-ethinyl 1 tab PO DAILY 10/17/22 10/17/22 Unknown History estradiol 30 mcg tablet (Krishna (28)) omega 3-vte-xff-fish oil 300 0 cap PO 10/17/22 10/17/22 Unknown History mg-1,000 mg capsule simethicone 125 mg chewable tablet 125 mg PO QID PRN 10/17/22 10/17/22 Unknown History (Gas Relief Extra Strength) sodium chloride 0.65 % nasal spray spray intranasal 10/17/22 10/17/22 Unknown History aerosol (Deep Sea Nasal) vitamin B complex-folic acid 0.4 1 tab PO DAILY 10/17/22 10/17/22 Unknown History mg tablet Exam Airway Mallampati Class: II TM Dist: >3cm Neck ROM: Limited Heart: rrr Lungs: cts Assessment and Plan Final Anesthetic Review Family History of Problems with Anesthesia: No History of Problems with Anesthesia: No NPO: Yes ASA Class: II Final Preanesthetic Review: No Changes in Pt Med Stat, Meds/Allgs Chart Reviewed, Consent Obtained/Reviewed and Anes Risks/Benef Reviewed Patient Risk: Intermediate Procedure Risk: Low Anesthetic Plan Anesthetic Plan: MAC: Disposition: Standard PACU
--- NOTE | ~2022-10-24 | FL_ITS ---
EXAMINATION: XR FLUOROSCOPY WITH IMAGES CLINICAL INFORMATION: Bilateral SI joint injections. COMPARISON: 07/18/2022. TECHNIQUE: Fluoroscopy Supervised By: Dr. Elver Kruse. Fluoroscopy Time: 0.2 minutes. Cumulative Dose: 3.51 mGy. DAP: 0.958 Gycm2. Images: 2. FINDINGS: Drift and contrast are seen overlying both the right and left sacroiliac joints. FL/FL guidance in OR IMPRESSION: Intraoperative fluoroscopy for pain management procedure.
[2022-10-24 12:33] VITALS: BMI 29.2
[2022-10-24 12:38] LABS: UPreg QC Valid YES; Urine Pregnancy NEGATIVE (NEGATIVE)
[2022-10-24 12:45] LABS: Glucose, Whole Blood 159 mg/dL (60-115)
[2022-10-24] MEDS: Lactated Ringers 1,000 ML 100 ML IVCONT (12:55)
--- NOTE | 2022-10-24 13:56 | MHC.SHP ---
Pre-Procedural Eval Section A Date of Service: 10/24/22 The patient is an INPATIENT: No Changes since office visit: Yes Patient answered all questions The History & Physical has been completed within 30 days and I have reviewed it.: No Section B Chief Complaint: Sacroiliitis, not elsewhere classified Details of Present Illness: as above Relevant Family History (Specify if Yes): No Relevant Social History: None Present Medications: None History of Previous Operations: No relevant previous surgery Allergies: Allergies Allergy/AdvReac Type Severity Reaction Status Date / Time lisinopril [LISINOPRIL] Allergy Mild COUGH Verified 10/17/22 15:57 aspirin [ASA] Allergy Unknown GI UPSET Verified 10/17/22 15:57 Review of Systems Sugical H&P ROS: Negative: Constitution, Cardiovascular, Respiratory, Neurological, Psychiatric, Hem-Onc, Allergic/Immunologic, Gastrointestinal, Genitourinary, Integumentary, Endocrine and Eyes/Ears/Nose/Throat and Yes, Specify: Musculoskeletal (ankylosing spondylitis) Exam Surgical H&P Exam: Normal: HEENT, Normal: Heart, Normal: Lungs, Normal: Extremities, Normal: Abdomen, Normal: Skin and Normal: Neurological Plan Diagnosis/Plan: Unchanged I have reviewed the history and physical and performed a pertinent physical examination on my patient. No changes have occurred unless specified. Time Spent With Patient Time: Total time managing care of this patient today ____ minutes.
[2022-10-24 14:55] VITALS: BP 137/72; PULSE 88; RESP 18; TEMP 36.9; O2SAT 100
[2022-10-24 14:57] LABS: Glucose, Whole Blood 77 mg/dL (60-115)
--- NOTE | 2022-10-24 15:00 | P.BOP_ITS ---
Brief Operative Note Date of Service: 10/24/22 Pre-op diagnosis: ankilosing spondylitis, sacroiliitis Post-op diagnosis: same Procedure: b/l si joint steroid injections Surgeon: Elver Kruse MD Anesthesia: MAC Was an Applications Engineering Manager used for this Procedure?: No Estimated blood loss (mL): 0 Condition: stable Disposition: PACU
--- NOTE | 2022-10-24 15:06 | W.PM.OPN ---
Operative Note Operative Note Date of Service: 10/24/22 Narrative: Bilateral therapeutic SI joint injection. Patient came to the operating room and was positioned prone on the operating table with the pillow under the pelvis. The lower back and buttocks of the patient were prepped with ChloraPrep prepped and draped with sterile utility towels. ASA m-rs were applied and te patient was sedated. Erendira out was performed delineating Name and of the patient, side and site of the procedure, allergies, antibiotics needs (none) and risk of fire. C-arm was brought over the operating field and sq picture of patient's pelvis was demonstrated on the screen. For the right joint tilting C-arm contralateral to the site of the joint the most posterior portion of the joints was superimposed with anterior silhouette of the joint. Skin was injected in the projection of the joint slightly medial to the location of the joint with 25 gauge 1/2 inch needle using local lidocaine 2% .After that 22 gauge 3 and 1/2 inch needle was driven to the right joint in tunnel vision fashion. When needle entered the joint capsule- injection of the contrast was performed demonstrating intra-articular and minimally periarticular spread of the contrast. After that 4 cc. of ropivacaine 0.5%mixed with kenalog 40 mg was injected into the joint. Upon completion of the injections the needle was removed Sterile dressings were applied. Upon completion of the injection patient was taken outside of the operating room to the recovery room where recovered uneventfully.
[2022-10-24 15:10] VITALS: BP 126/66; PULSE 83; RESP 18; TEMP 36.9; O2SAT 100
== END 2022-10-24 15:39 | disposition home or self-care (01) ==
PROVIDERS: Nurse Practitioner; PCP Nurse Practitioner Family; Visit Provider Anesthesiology
PROC: 3E0U33Z Introduction of Anti-inflammatory into Joints, Percutaneous Approach (ICD-10-PCS; CPT 27096; principal; 2022-10-24 13:10)
DX: M46.1 Sacroiliitis, not elsewhere classified (principal); M47.816 Spondylosis without myelopathy or radiculopathy, lumbar region; M45.9 Ankylosing spondylitis of unspecified sites in spine; M79.7 Fibromyalgia
CPT/HCPCS: 27096; 81025; 82947; J2795; J3301; Q9965

== ENCOUNTER 2022-10-30 14:13 | Outpatient (REF) | payer OTHER, SELFPAY ==
[2022-10-30 15:43] LABS: Amphetamine Screen Urine Not Detected (Not Detect); Barbiturates, Urine Not Detected (Not Detect); Benzodiazepines Screen Urine POSITIVE (Not Detect); Cannabinoid Screen Urine POSITIVE (Not Detect); Cocaine Screen Urine Not Detected (Not Detect); Fentanyl, urine Not Detected (Not Detect); Opiate Screen Urine Not Detected (Not Detect); Phencyclidine Screen Urine Not Detected (Not Detect)
== END 2022-10-30 14:14 | disposition home or self-care (01) ==
LOC: HO.LAB 14:13
PROVIDERS: PCP Nurse Practitioner Family; Visit Provider Nurse Practitioner Family
DX: Z79.899 Other long term (current) drug therapy (principal)
CPT/HCPCS: 80307

== ENCOUNTER 2024-05-24 14:46 | Outpatient (AMB) | payer OTHER, SELFPAY ==
--- NOTE | 2024-05-24 14:49 | MHC.OFFVIS ---
Vital Signs 05/24/24 14:54 Height 5 ft Weight 153 lb 10.595 oz BMI 30.0 BP 140/64 H Blood Pressure Location Rt brachial Position Sitting Pulse 99 Pulse Source Pulse Oximeter Pulse Oximetry (%) 98 Oxygen Delivery Method Room Air Intake Visit Reasons: ankylosing spondylitis/CM Intake Note: Patient presents for Ankylosing Spondylitis. Allergies lisinopril [LISINOPRIL] Allergy (Mild, Verified 05/24/24 14:53) COUGH aspirin [ASA] Allergy (Unknown, Verified 05/24/24 14:53) GI UPSET Medication List - Last Reconciled 05/24/24 by Dimple Palomo MD acidophilus-sporogenes 35 million- 25 million cell (Acidophilus Ex Str (L. sporog)) 1 tab PO DAILY amlodipine 10 mg PO DAILY amoxicillin-pot clavulanate 875-125 mg 1 tab PO Q12H atorvastatin 20 mg PO DAILY biotin 10 mg PO DAILY calcium carbonate-vitamin D3 500 mg-10 mcg (400 unit) (Calcium 500 With D) 1 tab PO BID certolizumab pegol (Cimzia) 200 mg subcut Q2W clonidine HCl 0.1 mg PO BID dextroamphetamine-amphetamine 20 mg ER (Adderall XR) 20 mg PO DAILY dextroamphetamine-amphetamine 5 mg ER 5 mg PO DAILY dextrose 40% (Glutose-15) grams PO diazepam 10 mg PO BID PRN dicyclomine 10 mg PO QID duloxetine (Cymbalta) 120 mg PO DAILY fluconazole 150 mg PO QWEEK fluticasone propionate 50 mcg/actuation 1 spray intranasal DAILY PRN folic acid 1 mg PO DAILY insulin aspart U-100 (Novolog FlexPen U-100 Insulin aspart) subcut insulin glargine (Lantus Solostar U-100 Insulin) units subcut ipratropium bromide intranasal ketoconazole 2% topical lamotrigine 100 mg PO DAILY lamotrigine 50 mg PO DAILY leflunomide 20 mg PO DAILY loperamide (Anti-Diarrheal (loperamide)) 0 mg PO loratadine 10 mg PO DAILY losartan 100 mg PO DAILY nabumetone 750 mg PO BID norgestrel-ethinyl estradiol 0.3-30 mg-mcg (Cryselle (28)) 1 tab PO DAILY omega 2-ggn-xig-fish oil 300-1,000 mg 0 caps PO omeprazole 20 mg PO BID pregabalin (Lyrica) 225 mg PO BID pseudoephedrine HCl 30 mg PO Q4-6H PRN simethicone (Gas Relief Extra Strength) 125 mg PO QID PRN sodium chloride 0.65% (Deep Sea Nasal) sprays intranasal tizanidine 4 mg PO TID tramadol-acetaminophen 37.5-325 mg 2 tabs PO Q8H PRN vitamin B complex-folic acid 0.4 mg 1 tab PO DAILY HPI Comments Details: This is a 43-year-old female with HLA B27 positive ankylosing spondylitis who presents for follow-up. Patient has not been in clinic since 10/2022. She has missed multiple appointments. 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 She was in the ICU for some time then got downgraded to the floors then admitted to a rehab facility. She states that she has been getting the leflunomide 20 mg daily regularly by her PCP. She ran out of her Cimzia about 9 months ago. She states that she continues to have low back pain. She states that she has morning stiffness lasting 10-12 hours. She states that since she ran out of Cimzia she has been having worsening low back pain. About 40% worse. She states that tizanidine does provide some relief. She takes 4 mg 3 times a day. She wonders whether it can be increased. [facility] Medical History (Updated 05/24/24 @ 15:36 by Dimple Palomo MD) Ethylene glycol poisoning HTN (hypertension) Fibromyalgia Ankylosing spondylitis Surgical History H/O oral surgery H/O wisdom tooth extraction Family History Father HTN (hypertension) Psoriasis Mother Colitis Sister Fibromyalgia Social History Alcohol intake: never Patient Tobacco Use Status: Former Tobacco user Review of Systems Const Reports fatigue and Reports weakness Musc Reports back pain, Reports deformity, Reports arthralgias and Denies joint swelling Neuro Reports weakness Endo Reports fatigue Physical Exam Vital Signs: Last Vital Signs Pulse 99 05/24/24 14:54 BP 140/64 H 05/24/24 14:54 Pulse Ox 98 05/24/24 14:54 Oxygen Delivery Method Room Air 05/24/24 14:54 BMI result Body Mass Index 30.0 Const General: cooperative, healthy appearing and comfortable Nutritional Appearance: overweight Orientation/consciousness: patient oriented x3 Limitations: no limitations HEENT Head: Yes normocephalic and Yes atraumatic Mouth: moist mucous membranes Resp Effort & Inspection: normal respiratory effort and able to speak in complete sentences Auscultation: clear to auscultation bilaterally Skin General skin exam: no rashes or lesions noted Neuro General: patient oriented x3 Extrem Other: Cleopatra test 10-15.5 cm Negative straight leg raise test bilaterally Negative Fabere test bilaterally Osteoarthritic changes of both hands with no active synovitis No elbow pain with flexion-extension Normal pain-free range of motion of shoulders No knee pain with flexion-extension bilaterally No ankle swelling or tenderness bilaterally Assessment & Plan Assessment & Plan (1) Ankylosing spondylitis: Comment: dx 2009 Cimzia 09/2018-to present Cosentyx - 09/2018 Arava -02/2018- present Methotrexate- 12/2017 stopped due to mouth sores Sulfasalzine -08/2016-01/2017 Humira-failed Remicade-failed Code(s): M45.9 - Ankylosing spondylitis of unspecified sites in spine Category: Medical Plan: This is a 43-year-old female with ankylosing spondylitis who presents for follow-up. On leflunomide 20 mg daily prescribed by PCP. Patient has not been seen in clinic since 10/2022. She has missed multiple appointments. She has ran out of her Cimzia about 8-9 months ago. Doing worse since she has been off of her Cimzia. Going low back pain and stiffness. Morning stiffness lasting many hours. Need to restart Cimzia. We will start prior authorization for Cimzia Continue with leflunomide 20 mg daily Patient is on tizanidine 4 mg 3 times a day. She does not have side effects with tizanidine.. Discussed with patient that she can increase her tizanidine to 4 mg 4 times a day and monitor her symptoms possible side effects Labs before next visit in 3 months (2) Fibromyalgia: Code(s): M79.7 - Fibromyalgia Category: Medical Plan: On Lyrica 225 mg Twice daily. Managed by other providers Also on tramadol 50 mg Twice daily (3) High risk medication use: Code(s): Z79.899 - Other group home (current) drug therapy Category: Medical Plan: Discussed potential side effects of leflunomide. Despite its teratogenic effects. Advised patient to remain compliant with contraceptive pills . Monitor safety labs Side effects of Cimzia were discussed with the patient in detail including increased risk of infection, demyelinating disease, reactivation of latent TB, possible increased risk of solid and skin tumors. Patient fully aware. Advised patient to seek medical care [facility] if patient has an infection and advised patient to stop the medication until the infection is resolved. Plan I spent 30 minutes reviewing patient's chart, evaluating patient, ordering diagnostic workup, counseling patient and documenting in the chart Orders: Orders Complete Blood Count Auto Diff Today M45.9 - Ankylosing spondylitis of unspecified sites in spine Comprehensive Met. Panel Today M45.9 - Ankylosing spondylitis of unspecified sites in spine C Reactive Protein Today M45.9 - Ankylosing spondylitis of unspecified sites in spine Erythrocyte Sedimentation Rate Today M45.9 - Ankylosing spondylitis of unspecified sites in spine Medications: Refilled leflunomide 20 mg PO DAILY 30 tabs 2RF M45.0 - Ankylosing spondylitis of multiple sites in spine Coding Level of Care Code Est Pt Level 4 (31472) Complex EM visit Add On G2211 Diagnoses Ankylosing spondylitis of multiple sites in spine M45.9 Fibromyalgia M79.7 High risk medication use Z79.899
[2024-05-24 14:54] VITALS: BP 140/64; PULSE 99; O2SAT 98
== END 2024-05-24 15:29 | disposition home or self-care (01) ==
PROVIDERS: PCP Nurse Practitioner Family; Visit Provider Student in an Organized Health Care Education/Training Program
DX: M45.9 Ankylosing spondylitis of unspecified sites in spine (principal); M79.7 Fibromyalgia; Z79.899 Other long term (current) drug therapy
CPT/HCPCS: 99214; G2211

== ENCOUNTER → 2024-05-24 14:46 | Outpatient (BNVA) | payer OTHER, SELFPAY | PROVIDERS: PCP Nurse Practitioner Family; Visit Provider Student in an Organized Health Care Education/Training Program | DX: M45.0 Ankylosing spondylitis of multiple sites in spine (principal); M79.7 Fibromyalgia; Z79.899 Other long term (current) drug therapy | CPT/HCPCS: 99212 ==

== ENCOUNTER 2024-10-08 11:17 | Outpatient (AMB) | payer OTHER, SELFPAY ==
--- NOTE | 2024-10-08 11:19 | A.OFFVIS_ITS ---
Vital Signs 10/08/24 11:20 Height 5 ft Weight 154 lb BMI 30.1 BP 136/74 Blood Pressure Location Lt brachial Position Sitting Pulse 100 Pulse Source Pulse Oximeter Pulse Oximetry (%) 100 Oxygen Delivery Method Room Air Intake Visit Reasons: Intake Note: Patient presents for follow up on . She was last seen in the office by Dr. Palomo on 05/24/24. Allergies lisinopril [LISINOPRIL] Allergy (Mild, Verified 10/08/24 11:25) COUGH aspirin [ASA] Allergy (Unknown, Verified 10/08/24 11:25) GI UPSET Medication List - Last Reconciled 10/08/24 by Judit Hernandez MD amlodipine 10 mg PO DAILY atorvastatin 20 mg PO DAILY bupropion HCl XL 300 mg PO DAILY calcium carbonate-vitamin D3 500 mg-10 mcg (400 unit) (Calcium 500 With D) 1 tab PO BID certolizumab pegol (Cimzia) 200 mg subcut Q2W clonidine HCl 0.1 mg PO BID dextrose 40% (Glutose-15) grams PO dicyclomine 10 mg PO QID duloxetine (Cymbalta) 120 mg PO DAILY ferrous sulfate (Feosol) 325 mg PO DAILY fluticasone propionate 50 mcg/actuation 1 spray intranasal DAILY PRN folic acid 1 mg PO DAILY insulin aspart U-100 (Novolog FlexPen U-100 Insulin aspart) subcut ipratropium bromide intranasal lamotrigine 200 mg PO DAILY leflunomide 20 mg PO DAILY lisdexamfetamine 40 mg PO DAILY loperamide (Anti-Diarrheal (loperamide)) 0 mg PO loratadine 10 mg PO DAILY losartan 100 mg PO DAILY nabumetone 750 mg PO BID norgestrel-ethinyl estradiol 0.3-30 mg-mcg (Cryselle (28)) 1 tab PO DAILY omega 3-qkp-pvv-fish oil 300-1,000 mg 0 caps PO omeprazole 20 mg PO BID pregabalin (Lyrica) 225 mg PO BID sodium chloride 0.65% (Deep Sea Nasal) sprays intranasal tizanidine 4 mg PO QID 30 days tramadol-acetaminophen 37.5-325 mg 2 tabs PO Q8H PRN vitamin B complex-folic acid 0.4 mg 1 tab PO DAILY HPI Comments Details: Patient is a 43-year-old female with hypertension, hyperlipidemia, fibromyalgia and ankylosing spondylitis here today for follow up Interval History: Patient last seen 05/24/[address] Palomo. At that time she was following up for her ankylosing spondylitis. That appointment was after she was lost to follow-up for over a year, was no longer on her Cimzia and only taking leflunomide. She did note worsening of her symptoms since being out of her Cimzia 9 months prior. Cimzia was restarted and her leflunomide was continued Started the Cimzia along with the leflunomide Currently complaining of lower back and mid back pain Associated with prolonged AM stiffness > 5 hours Does not feel the cimzia is helping Rheumatologic History: dx 2009 Cimzia 09/2018-to present Cosentyx - 09/2018 Arava -02/2018 - present Methotrexate- 12/2017 stopped due to mouth sores Sulfasalzine -08/2016-01/2017 Humira-failed Remicade-failed Lost to follow up 10/2022 --> 05/2024 Current Rheumatology Medication(s): Cimzia 200mg SC every 2 weeks Leflunomide 20mg PO daily Tizanidine 4mg qid [facility] Medical History (Updated 10/08/24 @ 12:44 by Judit Hernandez MD) Ethylene glycol poisoning HTN (hypertension) Fibromyalgia Ankylosing spondylitis Surgical History H/O oral surgery H/O wisdom tooth extraction Family History Father HTN (hypertension) Psoriasis Mother Colitis Sister Fibromyalgia Social History Alcohol intake: never Patient Tobacco Use Status: Former Tobacco user Review of Systems Const Details: Review of Systems Constitutional: Denies fever, chills, weight loss ENT: Denies vision changes, eye pain or eye redness, dental caries, dry mouth GI: Denies nausea, vomiting, diarrhea, abdominal pain, change in BM Pulm: Denies SOB, PEÑA, hemoptysis, wheezing Cards: Denies chest pain, palpitations Skin: Denies Raynaud's, rash, nail changes, photosensitivity, ENTERPRISE ARCHITECT: Denies headaches, weakness, paresthesias, recurrent falls MSK: as per HPI All other systems reviewed and are unremarkable except noted above Physical Exam Vital Signs: Last Vital Signs Pulse 100 10/08/24 11:20 BP 136/74 10/08/24 11:20 Pulse Ox 100 10/08/24 11:20 Oxygen Delivery Method Room Air 10/08/24 11:20 BMI result Body Mass Index 30.1 Vital signs reviewed Physical Examination CONSTITUITIONAL Patient alert and cooperative. Well appearing and in no apparent painful distress HEENT Conjunctiva and sclera clear. ?Pupils equal round and reactive to light. ?No lymphadenopathy. ? CHEST/RESPIRATORY SYSTEM Normal respiratory effort and able to speak in complete sentences. ?Clear to auscultation bilaterally. ?No crackles, rales, rhonchi, wheezes heard. CARDIAC SYSTEM Regular rate and rhythm. ?S1 and S2 heard no murmurs. 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 No deformities noted. ?No synovitis noted to the MCPs, PIPs or DIPs. ?Mild t enderness to palpation of these joints. Wrists: ?Full range of motion at the wrists without pain. ?No tenderness to palpation or synovitis noted to the wrists. Elbows: Full range of motion without pain. No tenderness, weakness, swelling, increased warmth or erythema. Shoulders: Full range of motion without pain. No tenderness, weakness, swelling, increased warmth or erythema. Hip bursa: Tenderness to palpation Knees: ?Full range of motion. ?No tenderness, swelling, increased warmth or erythema.?No effusion or crepitations Ankles: Full range of motion. ?No tenderness, swelling, increased warmth or e rythema.? Feet: ?Negative squeeze test. ?No tenderness to palpation or swelling of the MTPs. Tender points:?Tenderness to palpation of the bilateral trapezius, supraspinatus, greater trochanters, anterior costochondral junctions, bilateral gluteal areas, bilateral suboccipital muscle insertions SKIN Skin intact without rashes. Results Reviewed Results Reviewed: [facility] lab results reviewed 03/2024 WBC 7.8 HB 11.3 Platelets 384 Creatinine 0.91 EGFR 80 QuantiFERON negative AST/ALT CRP 13 H [facility] lab results reviewed 09/2024 WBC 9.6 HB 10.7 Platelets 357 Creatinine 0.86 EGFR 86 QuantiFERON negative AST/ALT 26/05 CRP 14 H ESR 42 H Hepatitis B/C neg XR SI joint 07/2022 FINDINGS: Mild bilateral SI joint arthritis, with mild inferior spurring and mild bony sclerosis marginating the joint. No erosions are seen. No ankylosis is identified. No acute fractures seen. IMPRESSION: Mild bilateral SI joint arthritis. Assessment & Plan Assessment & Plan (1) Ankylosing spondylitis: Comment: dx 2010 Cimzia 09/2018-09/2024. Not effective Cosentyx - 09/2018 Arava -02/2018- present Methotrexate- 12/2017 stopped due to mouth sores Sulfasalzine -08/2016-01/2017 Humira-failed Remicade-failed Code(s): M45.9 - Ankylosing spondylitis of unspecified sites in spine Category: Medical Qualifiers: Ankylosing spondylitis location: multiple sites in spine Qualified Code(s): M45.0 - Ankylosing spondylitis of multiple sites in spine Plan: #Ankylosing spondylitis Patient is a 43-year-old female with ankylosing spondylitis here today for follow up. Currently on Cimzia however she continues to have persistent inflammation with high inflammatory markers ESR/CRP and continued symptoms. At this time patient has tried and failed several TNF inhibitors including Humira, infliximab and now Cimzia. She has also failed conventional DMARD such as leflunomide, methotrexate and sulfasalazine. She has also failed IL 17 inhibitor Cosentyx. Given her continued moderate to severe disease activity she still requires immunosuppression. Discussed Rinvoq with the patient. No obvi ous contraindications to this medication. We will proceed with prior authorization Plan - Stop Cimzia - Start Rinvoq 15mg daily - Continue nabumetone 750mg bid prn for pain - Continue leflunomide 20mg daily - RTC 4 months - Labs before visit: CBC, CMP, ESR, CRP, hepatitis panel, T spot (2) Fibromyalgia: Code(s): M79.7 - Fibromyalgia Category: Medical Plan: #Fibromyalgia Patient with concomitant fibromyalgia however due to her uncontrolled ankylosing spondylitis is difficult to tease out what is from fibromyalgia versus ankylosing spondylitis. 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 Janus kinase inhibitor Plan: #Long-term Use of SAPNA inhibitor Rinvoq Discussed with patient the benefits and risks of SAPNA inhibitors for the management of the rheumatic condition Benefits include reduce pain, maintenance of remission and reduction of flares Risks include thromboembolic events, skin cancer and nonmelanoma skin cancers, other forms of cancer, cardiovascular alcohol and mortality Advise patient that they are to hold the medication and for up to 1 week after a febrile illness or an open skin wound (4) Encounter for monitoring leflunomide therapy: Code(s): Z51.81 - Encounter for therapeutic drug level monitoring; Z79.69 - [facility] (current) use of other immunomodulators and immunosuppressants Plan: #Long-term leflunomide Discussed with patient the benefits and risks of leflunomide for managing the rheumatic condition Benefits include: - Reduced pain, maintenance of remission and reduction of flares Risks include: - GI upset especially diarrhea, skin rash, cytopenias, hepatotoxicity, weight loss, neuropathy Leflunomide is highly teratogenic. ?Has a very long half-life. ?Needs cholestyramine washout if there is desire for Initiation: ?CBC, BMP, LFTs, hepatitis-B and C serologies every 2-4 weeks for 3 months Monitoring: ?CBC, BMP, LFTs, hepatitis B and C serologies Plan I spent 40 minutes reviewing the record and labs, taking a history, examining the patient, discussing the treatment plan, ordering diagnostic work up and documenting in the medical record Orders: Orders Complete Blood Count Auto Diff 4 Months M45.0 - Ankylosing spondylitis of multiple sites in spine Comprehensive Met. Panel 4 Months M45.0 - Ankylosing spondylitis of multiple sites in spine C Reactive Protein 4 Months M45.0 - Ankylosing spondylitis of multiple sites in spine Erythrocyte Sedimentation Rate 4 Months M45.0 - Ankylosing spondylitis of multiple sites in spine Medications: New upadacitinib ER (Rinvoq) 15 mg PO DAILY 90 tabs 1RF M45.9 - Ankylosing spondylitis of unspecified sites in spine pregabalin (Lyrica) 225 mg PO BID 180 caps 1RF M79.7 - Fibromyalgia Changed From nabumetone 750 mg PO BID 56 tabs 0RF M45.0 - Ankylosing spondylitis of multiple sites in spine To nabumetone 750 mg PO BID PRN 180 tabs 1RF pain M45.0 - Ankylosing spondylitis of multiple sites in spine Refilled leflunomide 20 mg PO DAILY 90 tabs 1RF M45.0 - Ankylosing spondylitis of multiple sites in spine tizanidine 4 mg PO QID 30 days 120 tabs 4RF for muscle spasm G89.29 - Other chronic pain Discontinued tramadol-acetaminophen 37.5-325 mg take 1-2 tabs every 8 hours as needed Discontinued Reason: Doctor's Order 2 tabs PO Q8H PRN 120 tabs 0RF pain M47.816 - Spondylosis without myelopathy or radiculopathy, lumbar region certolizumab pegol (Cimzia) Discontinued Reason: Doctor's Order 200 mg subcut Q2W 2 ea 3RF M45.9 - Ankylosing spondylitis of unspecified sites in spine Coding Level of Care Code Est Pt Level 5 (38608) Complex EM visit Add On G2211 Diagnoses Ankylosing spondylitis of multiple sites in spine M45.0 Ankylosing spondylitis location: multiple sites in spine Fibromyalgia M79.7 Long-term current use of Janus kinase inhibitor Z79.622 Encounter for monitoring leflunomide therapy Z51.81; Z79.69
[2024-10-08 11:20] VITALS: BP 136/74; PULSE 100; O2SAT 100; BMI 30.1
== END 2024-10-08 12:05 | disposition home or self-care (01) ==
LOC: HO.RHE 11:17
PROVIDERS: PCP Nurse Practitioner Family; Visit Provider Student in an Organized Health Care Education/Training Program
DX: M45.0 Ankylosing spondylitis of multiple sites in spine (principal); M79.7 Fibromyalgia; Z79.622 Long term (current) use of Janus kinase inhibitor; Z51.81 Encounter for therapeutic drug level monitoring; Z79.69 Long term (current) use of other immunomodulators and immunosuppressants
CPT/HCPCS: 99215; G2211

== ENCOUNTER → 2024-10-08 11:17 | Outpatient (BNVA) | payer OTHER, SELFPAY | PROVIDERS: PCP Nurse Practitioner Family; Visit Provider Student in an Organized Health Care Education/Training Program | DX: M45.0 Ankylosing spondylitis of multiple sites in spine (principal); M79.7 Fibromyalgia; Z79.622 Long term (current) use of Janus kinase inhibitor; Z79.69 Long term (current) use of other immunomodulators and immunosuppressants; Z51.81 Encounter for therapeutic drug level monitoring | CPT/HCPCS: 99212 ==

== ENCOUNTER 2025-02-16 14:53 | Outpatient (AMB) | payer OTHER, SELFPAY ==
--- OUTSIDE RECORDS SUMMARY | 2025-02-15 23:59 | XMS_ITS | Continuity of Care Document ---
Author Organization [facility] Address [address] [place] [id number]- Care Team Providers Care Cushion Former Name Role Phone Madyson Perez MD Primary Care Physician Encounter [facility] Date(s): 01/16/25 - 02/15/25 [facility] [address] [place], [place] [phone] Encounter Type: Triage Allergies, Adverse Reactions, Alerts Substance Criticality Severity Reaction Reaction Severity Status aspirin Unable to assess criticality Intermittent GERD Active lisinopril C/O - cough Active Immunizations Given and Recorded Vaccine Date Status Refusal Reason tetanus/diphtheria/pertussis, acel(Tdap) 10/15/24 Given pneumococcal 20-valent conjugate vaccine 10/15/24 Given influenza virus vaccine, inactivated 08/01/22 Give n influenza virus vaccine, inactivated 04/22/19 Tru rded influenza virus vaccine, inactivated 05/15/18 Tru rded influenza virus vaccine, inactivated 04/19/17 Tru rded influenza virus vaccine, inactivated 1 06/08/12 [facility] influenza virus vaccine, inactivated 2 05/21/10 Gi s[facility] SARS-CoV-2 mRNA ([id number]) vax 11/22/21 Given SARS-CoV-2 (COVID-19) mRNA BNT-162b2 vac 12/27/20 Recorded SARS-CoV-2 (COVID-19) mRNA BNT-162b2 vac 11/15/20 Recorded pneumococcal 23-valent vaccine 05/07/18 Given Tet/diphth/pertussis, acel (oldterm) 3 12/29/09 Gi santosh Pneumococcal Vaccine (oldterm) 4 11/18/09 Given 1Admin Note: vis monegasque 2Admin Note: VIS given 02/20/10 3Admin Note: VIS 05/21 4Admin Note: (given at [place]. pt brought vaccine card today. I dont' knwo whether it was IM or subcutaneous) Medications acetaminophen 500 mg oral tablet 2 tablet, By Mouth, Every 6 hours, PRN NEEDED FOR PAIN, # 240 tablet, 5 Refills, Maintenance, 12/08/24 2:58:00 PM EDT, [id number], 152, cm, 11/30/24 12:41:00 EDT, Height, 68, kg, 11/25/24 16:10:00 EDT, Dry Weight Start Date: 12/08/24 Status: Ordered Quantity: 240.0 Unit: tablet Repeat number: 6 Alcohol Wipes See Instructions, # 100 each, Refills 4, Tot. Refills 4, Maintenance, Use as directed up to 3 dailyfor management of E10.9 Duration: Lifetime, 02/24/24 2:06:00 PM EDT, Supply, 153, cm, 02/09/24 15:16:00 EDT, Height, 83, kg, 02/06/24 21:52:00 EDT, Dry Weight Start Date: 02/24/24 Status: Ordered Quantity: 100.0 Unit: each Repeat number: 5 atorvastatin 20 mg oral tablet 1 tablet, By Mouth, Daily, AT 6:30 PM., # 28 tablet, 5 Refills, Maintenance, 06/12/24 9:50:00 AM EST, [facility], 153, cm, 05/21/24 15:58:00 EST, Height, 83, kg, 02/06/24 21:52:00 EDT, Dry Weight Start Date: 06/12/24 Status: Ordered Quantity: 28.0 Unit: tablet Repeat number: 1 buPROPion 300 mg/24 hours (XL) oral tablet, extended release 1 tablet = 300 mg, By Mouth, Daily, TAKE 1 TABLET BY MOUTH EVERY DAY. Prescribed by psych Start Date: 10/18/24 Status: Ordered Repeat number: 1 Chem Strip Urine Test Strips Chem Strip Urine Test Strips, See Instructions, # 30 each, Refills 5, Tot. Refills 5, Maintenance, Dx: DM1 E10.9 Use for blood sugars above 300 to assess for ketosis ICD E11.1, 10/22/22 12:03:00 PM EDT, Supply, 153, cm, 10/11/22 13:18:00 EDT, Height, 65.9, kg, 08/25/22 6:49:00 EST, Dry Weight Start Date: 10/22/22 Status: Ordered Quantity: 30.0 Unit: each Repeat number: 6 cloNIDine 0.1 mg oral tablet 0.1 mg, 1, tablet, By Mouth, Daily at bedtime, Refills 0, Maintenance, 11/11/23 1:12:00 PM EDT, Partial fill upon patient request if the prescription is for a schedule II opioid drug. Start Date: 11/11/23 Status: Ordered Repeat number: 1 Compression Stockings See Instructions, # 2 each, Refills 1, Tot. Refills 1, Maintenance, surgical, thigh high length 20-30 mm Hg Dx: Varicose veins I86.8, Popliteal Cyst M71.2, 01/31/23 6:26:00 PM EDT, Supply Start Date: 01/31/23 Status: Ordered Quantity: 2.0 Unit: each Repeat number: 2 Contour Next EZ Test Strips See Instructions, # 100 each, Refills 3, Tot. Refills 3, Maintenance, Use as directed 4 x daily formonitoring of blood sugar for management of Type 1 Diabetes I10.9, 06/21/24 4:58:00 PM EST, Supply, 153, cm, 05/21/24 15:58:00 EST, Height, 83, kg, 02/06/24 21:52:00 EDT, Dry Weight Start Date: 06/21/24 Status: Ordered Quantity: 100.0 Unit: each Repeat number: 4 CONTOUR NEXT TEST STRIP USE TO TEST 4 TIMES DAILY Start Date: 04/22/19 Status: Ordered Repeat number: 1 Cryselle 28 oral tablet 1 tablet, By Mouth, Daily, # 28 tablet, 11 Refills, Maintenance, 04/09/24 11:06:00 AM EDT, [facility] #[id number], 0, 1 tablet By Mouth Daily, 153, cm, 04/08/24 11:46:00 EDT, Height, 83, kg, 02/06/24 21:52:00 EDT, Dry Weight Start Date: 04/09/24 Status: Ordered Quantity: 28.0 Unit: tablet Repeat number: 12 [facility] AL[facility]HOL 70% PREP PADS [facility] AL[facility]HOL 70% PREP PADS, See Instructions, # 100 Unknown, 5 Refills, Maintenance, USE DIRECTEDUP TO 3 DAILY FOR MANAGEMENT OF E10.9 DURATION: LIFETIME, 07/19/24 2:03:00 PM EST, 153, cm, 05/21/24 15:58:00 EST, Height, 83, kg, 02/06/24 21:52:00 EDT, Dry Weight Start Date: 07/19/24 Status: Ordered Quantity: 100.0 Unit: Unknown Repeat number: 1 [facility] GLUCOSE 4 GRAM TABLET CHEW TAKE 1 TABLET BY MOUTH DIRECTED NEEDED FOR LOW GLUCOSE, 3 TO 4 AT A TIME Start Date: 04/22/19 Status: Ordered Repeat number: 1 Dexcom G6 CGM Sensors Dexcom G6 CGM Sensors, See Instructions, # 3 each, Refills 11, Tot. Refills 11, Maintenance, For use with Omnipod Insulin pump Dx: E10 Duration: Lifetime, 06/21/24 1:45:00 PM EST, Supply, 153, cm, 05/21/24 15:58:00 EST, Height, 83, kg, 02/06/24 21:52:00 EDT, Dry Weight Start Date: 06/21/24 Status: Ordered Quantity: 3.0 Unit: each Repeat number: 12 Dexcom G6 CGM marketing pr intern Dexcom G6 CGM marketing pr intern, See Instructions, # 1 each, Refills 0, Tot. Refills 0, Maintenance, For usewith Omnipod insulin pump Dx: E10, 08/26/23 12:47:00 PM EST, Supply Start Date: 08/26/23 Status: Ordered Quantity: 1.0 Unit: each Repeat number: 1 Dexcom G6 CGM Transmitter Dexcom G6 CGM Transmitter, See Instructions, # 1 each, Refills 4, Tot. Refills 4, Maintenance, Dx: Type 1 DM E10.9 For use with Omnipod Insulin Pump, 10/21/24 4:07:00 PM EDT, Supply, 153, cm, 10/15/2510:35:00 EDT, Height, 83, kg, 02/06/24 21:52:00 EDT, Dry Weight Start Date: 10/21/24 Status: Ordered Quantity: 1.0 Unit: each Repeat number: 5 DEXCOM G6 TRANSMITTER DEXCOM G6 TRANSMITTER, See Instructions, # 1 Unknown, 0 Refills, Maintenance, DX: TYPE 1 DM E10.9 FOR USE WITH OMNIPOD INSULIN PUMP, 03/24/23 5:28:00 PM EDT, 152.4, cm, 03/24/23 16:49:00 EDT, Height, 80.6, kg, 02/06/23 8:54:00 EDT, Dry Weight Start Date: 03/24/23 Status: Ordered Quantity: 1.0 Unit: Unknown Repeat number: 1 dicyclomine 10 mg oral capsule 1 capsule, By Mouth, 4 times a day, # 112 capsule, 0 Refills, Maintenance, 08/15/24 11:00:00 PM [facility], 153, cm, 05/21/24 15:58:00 EST, Height, 83, kg, 02/06/24 21:52:00 EDT, DryWeight Start Date: 08/15/24 Status: Ordered Quantity: 112.0 Unit: capsule Repeat number: 1 duloxetine 60 mg oral enteric coated capsule 1 capsule = 60 mg, By Mouth, Daily Start Date: 11/07/23 Status: Ordered Repeat number: 1 Fish Oil 1000 mg oral capsule 1 capsule, By Mouth, Daily, # 30 capsule, 5 Refills, Maintenance, 07/16/24 8:58:00 AM [facility], 153, cm, 05/21/24 15:58:00 EST, Height, 83, kg, 02/06/24 21:52:00 EDT, Dry Weight Start Date: 07/16/24 Status: Ordered Quantity: 30.0 Unit: capsule Repeat number: 1 Flonase Allergy Relief 50 mcg/inh nasal spray 2 sprays = 100 mcg, Nares, Both, Daily, shake well before using, # 15.8 mL, 0 Refills, Maintenance,02/27/24 8:19:00 AM EDT, [place], [facility]/pharmacy #[id number], Partial fill upon patient request if the prescription is for a schedule II opioid drug., 153, cm, 02/09/24 15:16:00 EDT, Height, 83, kg, 02/06/24 21:52:00 EDT, Dry Weight Start Date: 02/27/24 Status: Ordered Quantity: 15.8 Unit: mL Repeat number: 1 folic acid 1 mg oral tablet See Instructions, 5 tablets By Mouth Daily, Refills 0, Maintenance, 04/22/19 8:40:48 PM EDT, Instructions Replace Required Details Start Date: 04/22/19 Status: Ordered Repeat number: 1 Insta-Glucose 24 g/31 g oral gel See Instructions, TAKE ONE PACKET (24GM) NEEDED FOR HYPOGLYCEMIA, # 31 Gm, 1 Refills, Maintenance, 01/17/25 10:25:00 AM EDT, [facility]/pharmacy #[id number], 152, cm, 11/30/24 12:41:00 EDT, Height, 68, kg, 11/25/24 16:10:00 EDT, Dry Weight Start Date: 01/17/25 Status: Ordered Quantity: 31.0 Unit: g Repeat number: 2 Insulin Syringe, BD Ultra-Fine 1 cc 30 G x 12.7 mm (1/2in) See Instructions, # 100 each, Refills 3, Tot. Refills 3, Maintenance, Use as directed 4 x daily formanagement of diabetes, 08/14/22 10:52:00 AM EST, Supply, 153, cm, 08/01/22 14:36:00 EST, Height, 66,kg, 11/29/21 21:34:00 EDT, Dry Weight Start Date: 08/14/22 Status: Ordered Quantity: 100.0 Unit: each Repeat number: 4 ketoconazole 2% topical shampoo See Instructions, APPLY TOPICALLY ONCE NEEDED, # 120 mL, 1 Refills, Maintenance, 01/15/25 8:38:00 PM EDT, [id number], 30, APPLY TOPICALLY ONCE NEEDED, 152, cm, 11/30/24 12:41:00 EDT, Height,68, kg, 11/25/24 16:10:00 EDT, Dry Weight Start Date: 01/15/25 Status: Ordered Quantity: 120.0 Unit: mL Repeat number: 1 Ketone test strips Ketone test strips, See Instructions, # 50 each, Refills 0, Tot. Refills 0, Maintenance, Use as directed 1 x daily as needed for symptoms hyperglycemia Dx: E10.9, 06/24/24 11:42:00 AM EST, Supply, 153, cm, 05/21/24 15:58:00 EST, Height, 83, kg, 02/06/24 21:52:00 EDT, Dry Weight Start Date: 06/24/24 Status: Ordered Quantity: 50.0 Unit: each Repeat number: 1 Ketostix See Instructions, # 100 each, Refills 3, Tot. Refills 3, Maintenance, use as directed for Type 1 Diabetes Mellitus, 07/05/24 12:48:00 PM EST, Supply, 153, cm, 05/21/24 15:58:00 EST, Height, 83, kg, 02/06/24 21:52:00 EDT, Dry Weight Start Date: 07/05/24 Stop Date: 11/02/24 Status: Ordered Quantity: 100.0 Unit: each Repeat number: 4 lamotrigine 150 mg oral tablet 1 tablet = 150 mg, By Mouth, Daily Start Date: 11/07/23 Status: Ordered Repeat number: 1 leflunomide 20 mg oral tablet 1 tablet = 20 mg, By Mouth, Daily, # 30 tablet, 1 Refills, Maintenance, 05/11/24 7:29:00 AM EDT, Tablet, [facility]/pharmacy #[id number], Partial fill upon patient request if the prescription is for a schedule IIopioid drug., 153, cm, 04/08/24 11:46:00 EDT, Height, 83, kg, 02/06/24 21:52:00 EDT, Dry Weight Start Date: 05/11/24 Status: Ordered Quantity: 30.0 Unit: tablet Repeat number: 2 lidocaine 5% topical film 1 patch, Topically, Daily, INSTR:REMOVE PATCHES AFTER 12 HOURS, # 90 patch, 1 Refills, Maintenance,09/30/24 5:05:00 PM EDT, [id number], 90, APPLY 1 PATCH TOPICALLY DAILY,INSTR:REMOVE PATCHES AFTER 12 HOURS, 153, cm, 05/21/24 15:58:00 EST, Height, 83, kg, 02/06/24 21:52:00 EDT, Dry Weight Start Date: 09/30/24 Status: Ordered Quantity: 90.0 Unit: patch Repeat number: 1 LISDEXAMFETA CAP 40MG LISDEXAMFETA CAP 40MG, 0 Refills, Maintenance, 02/01/25 12:49:00 AM EDT Start Date: 02/01/25 Status: Ordered Repeat number: 1 loperamide 2 mg oral tablet 1 tablet = 2 mg, By Mouth, Every 4 hours, PRN for loose stool, # 60 tablet, 11 Refills, Maintenance, 12/30/24 1:15:00 PM EDT, Tablet, [facility]/pharmacy #[id number], Partial fill upon patient request if the prescription is for a schedule II opioid drug., 152, cm, 11/30/24 12:41:00 EDT, Height, 68, kg, 11/25/24 16:10:00 EDT, Dry Weight Start Date: 12/30/24 Status: Ordered Quantity: 60.0 Unit: tablet Repeat number: 12 Indications: Diarrhea, unspecified; loratadine 10 mg oral tablet 1, tablet, By Mouth, Daily, # 28 tablet, Refills 0, Maintenance, 08/15/24 11:00:00 PM EST, Route to Pharmacy Electronically, [facility], 153, cm, 05/21/24 15:58:00 EST, Height, 83, kg, 02/06/24 21:52:00 EDT, Dry Weight Start Date: 08/15/24 Status: Ordered Quantity: 28.0 Unit: tablet Repeat number: 1 nabumetone 750 mg oral tablet 1 tablet, By Mouth, 2 times a day, # 60 tablet, 2 Refills, Maintenance, 10/03/24 11:07:00 AM EDT, [id number], 153, cm, 05/21/24 15:58:00 EST, Height, 83, kg, 02/06/24 21:52:00 EDT, Dry Weight Start Date: 10/03/24 Status: Ordered Quantity: 60.0 Unit: tablet Repeat number: 1 NovoLOG 100 units/mL injectable solution See Instructions, USE UP TO 250 UNITS EVERY 3 DAYS IN INSULIN PUMP, # 50 mL, 5 Refills, Maintenance, 12/18/24 6:34:00 PM EDT, [facility], 152, cm, 11/30/24 12:41:00 EDT, Height, 68, kg, 11/25/24 16:10:00 EDT, Dry Weight Start Date: 12/18/24 Status: Ordered Quantity: 50.0 Unit: mL Repeat number: 1 nystatin topical [id number] u/gm powder 1 application, Topically, 2 times a day, # 30 Gm, 0 Refills, Maintenance, 10/15/24 12:50:00 PM EDT, Powder, [id number], Partial fill upon patient request if the prescription is for a schedule II opioid drug., 1 application Topically 2 times a day, 153, cm, 10/15/24 11:35:00 EDT, Height, 83, kg, 02/06/24 21:52:00 EDT, Dry Weight Start Date: 10/15/24 Status: Ordered Quantity: 30.0 Unit: g Repeat number: 1 omeprazole 20 mg oral enteric coated capsule 1 capsule, By Mouth, 2 times a day, # 56 capsule, 0 Refills, Maintenance, 08/15/24 11:00:00 PM EST, [facility], 153, cm, 05/21/24 15:58:00 EST, Height, 83, kg, 02/06/24 21:52:00 EDT, Dry Weight Start Date: 08/15/24 Status: Ordered Quantity: 56.0 Unit: capsule Repeat number: 1 Omni Pod Insulin Pump See Instructions, # 1 each, Refills 11, Tot. Refills 11, Maintenance, Dx: DM1 DISPENSE OMNIPOD 5 Intro KIT, 01/28/22 1:24:00 PM EDT, Supply Start Date: 01/28/22 Status: Ordered Quantity: 1.0 Unit: each Repeat number: 12 Omni Pod Insulin Pump See Instructions, # 10 each, Refills 11, Tot. Refills 11, Maintenance, Use as directed, change every 3 days or sooner if displaced for managment of type 1 diabetes E10.9 Duration: Lifetime, 01/08/23 4:43:00 PM EDT, Supply, 153, cm, 10/11/22 13:18:00 EDT, Height, 65.9, kg, 08/25/22 6:49:00 EST, Dry Weight Start Date: 01/08/23 Status: Ordered Quantity: 10.0 Unit: each Repeat number: 12 Omni Pod Insulin Pump See Instructions, # 10 each, Refills 11, Tot. Refills 11, Maintenance, Use as directed, change every 3 days or if disloged Dx: E10.9 Duration: Lifetime, 08/13/24 2:08:00 PM EST, Omnipod 5 ; [facility] [id number], Supply, 153, cm, 05/21/24 15:58:00 EST, Height, 83, kg, 02/06/24 21:52:00 EDT, Dry Weight Start Date: 08/13/24 Status: Ordered Quantity: 10.0 Unit: each Repeat number: 12 Omnipod 5 kit Omnipod 5 kit, See Instructions, # 1 kit, Refills 0, Tot. Refills 0, Maintenance, use as directed for continous mangement of Type 1 diabetes E10.9 Duration Lifetime, 07/15/24 10:24:00 AM EST, Supply, 153, cm, 05/21/24 15:58:00 EST, Height, 83, kg, 02/06/24 21:52:00 EDT, Dry Weight Start Date: 07/15/24 Status: Ordered Quantity: 1.0 Unit: kit Repeat number: 1 ondansetron 4 mg oral tablet 1 tablet, By Mouth, Every 8 hours, PRN NEEDED FOR NAUSEA & VOMITING, # 21 tablet, 1 Refills,Maintenance, 01/12/25 9:58:00 AM EDT, [facility], 152, cm, 11/30/24 12:41:00 EDT, Height, 68, kg, 11/25/24 16:10:00 EDT, Dry Weight Start Date: 01/12/25 Stop Date: 01/17/25 Status: Ordered Quantity: 21.0 Unit: tablet Repeat number: 1 Prazosin = 3 mg, By Mouth, Daily at bedtime, 0 Refills, Maintenance, 02/01/25 4:55:00 AM EDT, Partial fill upon patient request if the prescription is for a schedule II opioid drug. Start Date: 02/01/25 Status: Ordered Repeat number: 1 pregabalin 225 mg oral capsule 1 capsule = 225 mg, By Mouth, 2 times a day, # 56 capsule, 0 Refills, Maintenance, 01/31/25 9:57:00 AM EDT, Capsule, [id number], Partial fill upon patient request if the prescription is for a schedule II opioid drug., 152, cm, 11/30/24 12:41:00 EDT, Height, 68, kg, 11/25/24 16:10:00 EDT, DryWeight Start Date: 01/31/25 Stop Date: 02/28/25 Status: Ordered Quantity: 56.0 Unit: capsule Repeat number: 1 Rinvoq 15 mg oral tablet, extended release 1 tablet = 15 mg, By Mouth, Daily, do not chew or break tablets, # 30 tablet, 0 Refills, Maintenance, 02/01/25 4:58:00 AM EDT, ER Tablet, Partial fill upon patient request if the prescription is for aschedule II opioid drug. Start Date: 02/01/25 Status: Ordered Quantity: 30.0 Unit: tablet Repeat number: 1 Sharps Container Sharps Container, See Instructions, # 1 each, Refills 11, Tot. Refills 11, Maintenance, DX: DM2, Ankylosing spondylitis Requesting monthly sharps container, 08/01/22 3:35:00 PM EST, Supply, 153, cm, 08/01/22 14:36:00 EST, Height, 66, kg, 11/29/21 21:34:00 EDT, Dry Weight Start Date: 08/01/22 Status: Ordered Quantity: 1.0 Unit: each Repeat number: 12 tiZANidine 4 mg oral tablet 4 mg, 1, tablet, By Mouth, 4 times a day, TAKE 1 TABLET ORALLY 4 TIMES A DAY NEEDED FOR FOR MUSCLE SPASM Prescribed by rheumatology Start Date: 10/15/24 Status: Ordered Repeat number: 1 traMADol 50 mg oral tablet 1 tablet = 50 mg, By Mouth, Every 4 hours, PRN as needed for pain, # 168 tablet, 0 Refills, Maintenance, 02/03/25 9:06:00 AM EDT, Tablet, [facility]/pharmacy #[id number], Partial fill upon patient request if the prescription is for a schedule II opioid drug., 153, cm, 02/01/25 14:53:00 EDT, Height, 62.5, kg, 02/01/25 0:15:00 EDT, Dry Weight Start Date: 02/03/25 Stop Date: 03/03/25 Status: Ordered Quantity: 168.0 Unit: tablet Repeat number: 1 Valium 5 mg oral tablet 5 mg, 1, tablet, By Mouth, 2 times a day, PRN, only gives 14 total prescribed a month, Refills 0, Maintenance, Pain , Moderate, 02/01/25 4:59:00 AM EDT, Partial fill upon patient request if the prescription is for a schedule II opioid drug. Start Date: 02/01/25 Status: Ordered Repeat number: 1 Vital-D = 1,250 mg, By Mouth, Every week, 0 Refills, Maintenance, 02/01/25 4:57:00 AM EDT, Partial fill uponpatient request if the prescription is for a schedule II opioid drug. Start Date: 02/01/25 Status: Ordered Repeat number: 1 Vitamin B1 100 mg oral tablet 100 mg, 1, tablet, By Mouth, Daily, Refills 0, Maintenance, 02/01/25 4:56:00 AM EDT, Partial fill upon patient request if the prescription is for a schedule II opioid drug. 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, active care coordination. 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 Christiansen[facility] December 2014 4primarily diarrhea 5bilaterally Social History Social History Type Response Smoking Status Former smoker entered on: 12/15/17 Sex Sex Representation Female (finding) 1PT QUIT IN 2007 Patient Care team information Care Team Personnel Name: Snow Colunga Position: [facility] Outreach Member Role: Lifetime Consulting Physician Name: Rocio Martell LPN Position: [facility] RN Member Role: Primary Care Nurse Name: Kamini López RN Position: [facility] RN Supv Member Role: Primary Care Nurse Name: Roselia Parra RN Position: [facility] ED RN W/OE and Tasks Member Role: Primary Care Nurse Name: Zakiya Sampson RN Position: [facility] SN RN Member Role: Primary Care Nurse Name: Alesia Moran RN Position: [facility] RN Member Role: Primary Care Nurse Name: Leilani ALBERTO, Myra Position: [facility] Associate Professional Member Role: Lifetime Consulting Provider Address: [address] [place], [place] [address] [place], [place] [address] Telecom: Name: Alex Chang MD Position: [facility] Renal MD Member Role: Lifetime Consulting Physician Address: [address] [place], [place] [address] [place], [place] [address] Telecom: Name: Kelly Alcala RN Position: [facility] RN Member Role: Primary Care Nurse Name: Dago Ruiz RN Position: [facility] RN Member Role: Primary Care Nurse Name: Madyson Perez MD Position: [facility] Resident Member Role: PCP Address: [address] [place] [id number] Telecom: Care Team Related Persons Name: RANDELL GEE Name: TALA MURPHY Insurance Providers Guarantor name: RAJ MURPHY Health Plan Information #: 1 Payer: [facility] Payer Identifier: [place] Member Number: [id number] Group Number: [id number] Subscriber Identifier: [id number] Relationship to Subscriber: self Coverage Type: Medicare Managed Care (Includes Medicare Advantage Plans) Coverage Verification Date: [place] Telecom: NA Address:
--- NOTE | 2025-02-16 14:55 | A.OFFVIS_ITS ---
Vital Signs 02/16/25 14:58 Height 5 ft Weight 144 lb BMI 28.1 BP 130/64 Blood Pressure Location Lt brachial Pulse 82 Pulse Source Pulse Oximeter Pulse Oximetry (%) 97 Oxygen Delivery Method Room Air Intake Visit Reasons: Intake Note: Patient last seen by Doctor Judit Hernandez on 10/08/24. Presents today for follow up and test results. Patient would like Rinvoq, Lefluniomide, and Tizanidine refill today. Allergies lisinopril (LISINOPRIL) Allergy (Mild, Verified 02/16/25 15:01) COUGH aspirin (ASA) Allergy (Unknown, Verified 02/16/25 15:01) GI UPSET HPI Comments Details: Patient is a 43-year-old female with hypertension, hyperlipidemia, fibromyalgia and ankylosing spondylitis here today for follow up Interval History: Patient last seen 10/08/24 with me - on nabumetone, Cimzia and leflunomide - complained of prolonged a.m. stiffness did not feel like Cimzia was helpful - Cimzia changed to Rinvoq Today - on nabumetone, Rinvoq and leflunomide - Does not feel that the Rinvoq - Complaining of brain fog and whole back pain especially low back Rheumatologic History: dx 2009 Cimzia 09/2018-to present Cosentyx - 09/2018 Arava -02/2018 - present Methotrexate- 12/2017 stopped due to mouth sores Sulfasalzine -08/2016-01/2017 Humira-failed Remicade-failed Lost to follow up 10/2022 --> 05/2024 Current Rheumatology Medication(s): Rinvoq 15mg po daily Leflunomide 20mg PO daily Tizanidine 4mg qid [facility] Medical History (Updated 10/08/24 @ 12:44 by Judit Hernandez MD) Ethylene glycol poisoning HTN (hypertension) Fibromyalgia Ankylosing spondylitis Surgical History H/O oral surgery H/O wisdom tooth extraction Family History Father HTN (hypertension) Psoriasis Mother Colitis Sister Fibromyalgia Social History Alcohol intake: never Patient Tobacco Use Status: Former Tobacco user Review of Systems Const Details: Review of Systems Constitutional: +brain fog ENT: Denies vision changes, eye pain or eye redness, dental caries, dry mouth GI: Denies nausea, vomiting, diarrhea, abdominal pain, change in BM Pulm: Denies SOB, PEÑA, hemoptysis, wheezing Cards: Denies chest pain, palpitations Skin: Denies Raynaud's, rash, nail changes, photosensitivity, 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 No swelling or tenderness to palpation of these joints. No deformities noted. * Left Hand: Able to make a fist. No swelling or tenderness to palpation of these joints. No deformities noted. Wrists * Right Wrist: Full ROM. 70 degrees of wrist flexion, 80 degrees of wrist extension. No swelling or TTP * Left Wrist: Full ROM. 70 degrees of wrist flexion, 80 degrees of wrist extension. No swelling or TTP Elbows * Right Elbow: Full ROM. No swelling or TTP. No TTP of the medial and lateral epicondyles * Left Elbow: Full ROM. No swelling or TTP. No TTP of the medial and lateral epicondyles Shoulders * Decreased ROM Knees * Right knee: Full ROM. No swelling noted. No TTP of the knee joint lie or pes anserine bursa * Left knee: Full ROM. No swelling noted. No TTP of the knee joint lie or pes anserine bursa. Ankles * Right ankle: Good ankle dorsiflexion and plantar flexion. No swelling. No TTP of the ankle joint * Left ankle: Good ankle dorsiflexion and plantar flexion. No swelling. No TTP of the ankle joint Feet * Right foot: Negative squeeze test * Left foot: Negative squeeze test Tender points? * Tenderness to palpation of the bilateral trapezius, supraspinatus, anterior costochondral junctions, bilateral suboccipital muscle insertions SKIN No rashes Vital Signs: BMI result Body Mass Index 28.1 Results Reviewed Results Reviewed: [facility] lab results reviewed 03/2024 WBC 7.8 HB 11.3 Platelets 384 Creatinine 0.91 EGFR 80 QuantiFERON negative AST/ALT CRP 13 H [facility] lab results reviewed 09/2024 WBC 9.6 HB 10.7 Platelets 357 Creatinine 0.86 EGFR 86 QuantiFERON negative AST/ALT 26/05 CRP 14 H ESR 42 H Hepatitis B/C neg XR SI joint 07/2022 FINDINGS: Mild bilateral SI joint arthritis, with mild inferior spurring and mild bony sclerosis marginating the joint. No erosions are seen. No ankylosis is identified. No acute fractures seen. IMPRESSION: Mild bilateral SI joint arthritis. Assessment & Plan Assessment & Plan (1) Ankylosing spondylitis: Comment: dx 2010 Cimzia 09/2018-09/2024. Not effective Cosentyx - 09/2018 Arava -02/2018- present Methotrexate- 12/2017 stopped due to mouth sores Sulfasalzine -08/2016-01/2017 Humira-failed Remicade-failed Code(s): M45.9 - Ankylosing spondylitis of unspecified sites in spine Category: Medical Qualifiers: Ankylosing spondylitis location: multiple sites in spine Qualified Code(s): M45.0 - Ankylosing spondylitis of multiple sites in spine Plan: #Ankylosing spondylitis Patient is a 43-year-old female with ankylosing spondylitis here today for follow up. Currently on Rinvoq without much improvement to her symptoms. No recent blood work to review her inflammatory markers. Given her failure of several immunosuppression leads me to believe that she is not currently having active disease and it may be due to the damage from active disease. That being said I think we should give Rinvoq some more time. We will try treating her fibromyalgia with low-dose naltrexone and see if this helps. We will get new x- rays to evaluate her spine Plan - Continue Rinvoq 15mg daily - Continue nabumetone 750mg bid prn for pain - Continue leflunomide 20mg daily - RTC 4 months - Labs before visit: CBC, CMP, ESR, CRP, hepatitis panel, T spot (2) Fibromyalgia: Code(s): M79.7 - Fibromyalgia Category: Medical Plan: #Fibromyalgia Patient with concomitant fibromyalgia. Plan - Continue Pregabalin 225mg bid - Continue Tizanidine 4mg tid - Start naltrexone 4.5mg nightly (3) Long-term current use of Janus kinase inhibitor: Code(s): Z79.622 - FPC (current) use of Janus kinase inhibitor Plan: #Long-term Use of SAPNA inhibitor Rinvoq Discussed with patient the benefits and risks of SAPNA inhibitors for the management of the rheumatic condition Benefits include reduce pain, maintenance of remission and reduction of flares Risks include thromboembolic events, skin cancer and nonmelanoma skin cancers, other forms of cancer, cardiovascular alcohol and mortality Advise patient that they are to hold the medication and for up to 1 week after a febrile illness or an open skin wound (4) Encounter for monitoring leflunomide therapy: Code(s): Z51.81 - Encounter for therapeutic drug level monitoring; Z79.69 - exterminator helper (current) use of other immunomodulators and immunosuppressants Plan: #Long-term leflunomide Discussed with patient the benefits and risks of leflunomide for managing the rheumatic condition Benefits include: - Reduced pain, maintenance of remission and reduction of flares Risks include: - GI upset especially diarrhea, skin rash, cytopenias, hepatotoxicity, weight loss, neuropathy Leflunomide is highly teratogenic. ?Has a very long half-life. ?Needs cholestyramine washout if there is desire for Initiation: ?CBC, BMP, LFTs, hepatitis-B and C serologies every 2-4 weeks for 3 months Monitoring: ?CBC, BMP, LFTs, hepatitis B and C serologies Plan I spent 30 minutes reviewing the record and labs, taking a history, examining the patient, discussing the treatment plan, ordering diagnostic work up and documenting in the medical record Orders: Orders XR sacroiliac joint min 3V Today M45.0 - Ankylosing spondylitis of multiple sites in spine XR lumbar spine 4V min Today M45.0 - Ankylosing spondylitis of multiple sites in spine XR cervical spine 4V Today M45.0 - Ankylosing spondylitis of multiple sites in spine XR thoracic spine 3V Today M45.0 - Ankylosing spondylitis of multiple sites in spine Referrals Pain Management Referral M47.816 - Spondylosis without myelopathy or radiculopathy, lumbar region Medications: New naltrexone 50 mg PO QWEEK 5 tabs 0RF 30 days M79.7 - Fibromyalgia Discontinued upadacitinib ER (Rinvoq) Discontinued Reason: Doctor's Order 15 mg PO DAILY 90 tabs 1RF M45.9 - Ankylosing spondylitis of unspecified sites in spine Coding Level of Care Code Est Pt Level 4 (14044) Complex EM visit Add On G2211 Diagnoses Ankylosing spondylitis of multiple sites in spine M45.0 Ankylosing spondylitis location: multiple sites in spine Fibromyalgia M79.7 Long-term current use of Janus kinase inhibitor Z79.622 Encounter for monitoring leflunomide therapy Z51.81; Z79.69
[2025-02-16 14:58] VITALS: BP 130/64; PULSE 82; O2SAT 97; BMI 28.1
--- OUTSIDE RECORDS SUMMARY | 2025-02-16 15:21 | XMS_ITS | Encounter Summary ---
Author Organization [facility] Address [address] [place] [address] Phone Care Team Providers Care Hand Drawer In Helper Name Role Phone Thomas Lofton Primary Care Provider [phone] Encounter Details Date Type Department Care Team (Late st Contact Info) Description 01/01/2024 Documentation Only [facility] [address] [place] [address] Layla Rm [address] [place] [address] Social History Tobacco Use Types Packs/Day Years Used Date Smoking Tobacco: Never Assessed Comments Unknown Sex and Gender Information Value Date Recorded Sex Assigned at Not on file Legal Sex Female 3:47 PM EDT Gender Identity Not on file Sexual Orientation Not on file documented as of this encounter Plan of Treatment Upcoming Encounters Date Type Department Care Team (Late st Contact Info) Description 02/25/2025 3:30 PM EDT Office Visit [facility] [address] [place] [address] Alex Chang MD [address] [place] [address] [place] [address] documented as of this encounter Visit Diagnoses Not on filedocumented in this encounter Care Teams Hand Drawer In Helper Relationship Specialty Start Date End Date Maria Elena Loftonor [address] [place] [address] PCP - General 01/09/24 documented as of this encounter
--- OUTSIDE RECORDS SUMMARY | 2025-02-16 15:21 | XMS_ITS | Encounter Summary ---
Author Organization [facility] Address [address] [place] [address] [address] [place] [address] Care Team Providers Care Administrative Underwriter Name Role Phone Unavailable Primary Care Provider Unavailabl e Reason for Visit * Reason Comments Med Refill Encounter Details Date Type Department Care Team ([facility] st Contact Info) Description 12/01/2024 Refill [facility] [address] [place] [id number] Karen Kolb NP [address] [place], [place] [id number] Social History Tobacco Use Types Packs/Day Years Used Date Smoking Tobacco: Never Assessed Comments Unknown Sex and Gender Information Value Date Recorded Sex Assigned at Female 05/13/2022 10:23 AM EDT Legal Sex Female 10:23 AM EDT Gender Identity Female 06/30/2023 2:26 PM EST Sexual Orientation Don't know 06/30/2023 2: 26 PM EST documented as of this encounter Miscellaneous Notes * Telephone Encounter - Faith Loomis [place] - 12/01/2024 1:47 PM EDT Never been seen documented in this encounter Plan of Treatment Not on file documented as of this encounter Visit Diagnoses Not on filedocumented in this encounter
--- OUTSIDE RECORDS SUMMARY | 2025-02-16 15:22 | XMS_ITS ---
Author Name [facility] Organization Unknown Encounters Encounter Type Encounter Reason Primary Diagnosis Location Date Ambulatory Poisoning / drug ingestion Poisoning / drug ingestion [place] 11/06/2023 Care Team Organization Name Specialty Phone Email Start Date End Da te [place] 11/07/2023 09/29/2024 [place] 11/06/2023
--- OUTSIDE RECORDS SUMMARY | 2025-02-16 15:22 | XMS_ITS | Continuity of Care Document ---
Author Organization [facility] [address] [place] [address] Phone [phone] Social History Type Date Description Comments Sex Female Sex Unknown Procedures Date Code Description Status 11/21/2021 NSHOWOFF No Show Office Visit Complet ed Medical Devices Description No Information Available Encounters Description No Information Available Assessments Date Code Description Provider 11/21/2021 E10.8 Type 1 diabetes mellitus with unspecified complications Jono Nolen M.D. Plan of Treatment No Information Available Functional Status Description No Information Available Mental Status Description No Information Available Referrals Description No Information Available
--- OUTSIDE RECORDS SUMMARY | 2025-02-16 15:22 | XMS_ITS | Clinical Summary ---
Author Organization [facility] Address [address] [place] [address] Care Team Providers Care Sports Cartoonist Name Role Phone Unknown Primary Care Provider [phone] Social History Tobacco Use Types Packs/Day Years Used Date Smoking Tobacco: Never Assessed Comments Unknown Sex and Gender Information Value Date Recorded Sex Assigned at Not on file Legal Sex Female 7:07 PM EST Gender Identity Not on file Sexual Orientation Not on file Plan of Treatment Health Maintenance Due Date Last Done Comments Hepatitis C Virus Screening 1980 HIV Screening 1993 DTaP/Tdap/Td Vaccines (1 - Tdap) 12/15/1999 Hepatitis B Vaccines (1 of 3 - 19+ 3-dose series) 12/15/1999 Pap Smear (Ages 21-65) 2001 Mammogram 2020 COVID-19 Vaccine ( - 2023-2 5 season) 2024 Influenza Vaccine 02/11/2025 HPV Vaccines Aged Out No longer eligi ble based on patient's age to complete this topic Pneumococcal Vaccine: Pediat deidre (0-5 Years) and At-Risk Patients (6 to 49 Years) Aged Out No longer eligible b ased on patient's age to complete this topic Care Teams Sports Cartoonist Relationship Specialty Start Date End Date Unknown Unknow Provider Address PCP - General Internal Medicine 11/06/23
--- OUTSIDE RECORDS SUMMARY | 2025-03-31 20:00 | XMS_ITS | Clinical Summary ---
Author Organization Unknown Care Team Providers Care Supervisor Alteration Workroom Name Role Phone BRAXTON ALBERTO, PB GEE RN, RANDELL Unavailable Unavailable Payers Payer Name Policy Type Policy Number Effective Date Expira tion Date [facility] [id number] [facility] [id number] MEDICARE - [place]/[facility] [id number] Problems Condition Name Condition Details Condition Category Status Onset Date Resolution Date Last Treatment Date Treating Clinician Comments BORDERLINE PERSONALITY DISORDER Active 11-18 00:00: 00 SUICIDE ATTEMPT, INITIAL ENCOUNTER Active 11-18 00:00: 00 TYPE 2 DIABETES MELLITUS WITHOUT COMPLICATION S Active 12-11 00:00: 00 Allergies, Adverse Reactions, Alerts Allergy Name Allergy Type Status Severity Reaction(s) Onset Date Inactive Date Treating Clinician Comments NSAIDS Propensity to adverse reactions Active 2023-11 12:03:3 8 Medications Ordered Medication Name Filled Medication Name Start Date Stop Date Current Medication? Ordering Clinician Indication Dosage Frequency Signature (SIG) Comments Components Anti-Diarrh eal (loperamide ) 2 mg tablet 12-26 00:00: 00 Yes [id number] Per instruc tions NEEDED Per instructio ns NEEDED (route: oral) Med Classific ation: Gastroint estinal Therapy Agents Cimzia 400 mg/2 mL (200 mg/mL x 2) subcutaneou s syringe kit 12-26 00:00: 00 05-28 23:59 :00 No [id number] 1 kit EVERY OTHER WEEK 1 kit EVERY OTHER WEEK (route: subcutaneo us) Med Classific ation: Analgesic , Anti-infl ammatory or Antipyret ic citalopram 20 mg tablet 12-25 00:00: 00 01-23 23:59 :00 No [id number] 1 tablet EVERY 12 HOURS 1 tablet EVERY 12 HOURS (route: oral) Med Classific ation: Central Nervous System Agents lamotrigine 25 mg tablet -14 00:00: 00 10-04 23:59 :00 No [id number] 1 tablet DAILY 1 tablet DAILY (route: oral) Med Classific ation: Central Nervous System Agents pregabalin 225 mg capsule 12-22 00:00: 00 01-21 23:59 :00 No [id number] 1 capsule DAILY 1 capsule DAILY (route: oral) Med Classific ation: Central Nervous System Agents omeprazole 20 mg capsule,del ayed release 12-20 00:00: 00 Yes [id number] 1 capsule 2 TIMES DAILY 1 capsule 2 TIMES DAILY (route: oral) Med Classific ation: Gastroint estinal Therapy Agents duloxetine 60 mg capsule,del ayed release 12-19 00:00: 00 09-16 23:59 :00 No [id number] 1 capsule DAILY 1 capsule DAILY (route: oral) Med Classific ation: Central Nervous System Agents atorvastati n 20 mg tablet 12-17 00:00: 00 01-20 23:59 :00 No [id number] 1 tablet BEDTIME 1 tablet BEDTIME (route: oral) Med Classific ation: Cardiovas cular Therapy Agents calcium carbonate 500 mg-vitamin D3 10 mcg (400 unit) chewable tablet 12-17 00:00: 00 03-21 23:59 :00 No [id number] 1-2 tablet 3 TIMES DAILY 1-2 tablet 3 TIMES DAILY (route: oral) Med Classific ation: Electroly te Balance-N utritiona l Products dextroamphe tamine-amph etamine 20 mg tablet 12-17 00:00: 00 08-21 23:59 :00 No [id number] 1 tablet DAILY 1 tablet DAILY (route: oral) Med Classific ation: Central Nervous System Agents dicyclomine 10 mg capsule 12-17 00:00: 00 Yes [id number] 3-4 capsule DAILY 3-4 capsule DAILY (route: oral) Med Classific ation: Gastroint estinal Therapy Agents folic acid 1 mg tablet 12-17 00:00: 00 01-20 23:59 :00 No [id number] 1 tablet DAILY 1 tablet DAILY (route: oral) Med Classific ation: Electroly te Balance-N utritiona l Products lamotrigine 100 mg tablet 12-17 00:00: 00 09-10 23:59 :00 No [id number] 1 tablet DAILY 1 tablet DAILY (route: oral) Med Classific ation: Central Nervous System Agents loratadine 10 mg tablet 12-17 00:00: 00 12-08 23:59 :00 No [id number] 1 tablet DAILY 1 tablet DAILY (route: oral) Med Classific ation: Respirato ry Therapy Agents losartan 100 mg tablet 12-17 00:00: 00 01-28 23:59 :00 No [id number] 1 tablet DAILY 1 tablet DAILY (route: oral) Med Classific ation: Cardiovas cular Therapy Agents nabumetone 750 mg tablet 12-17 00:00: 00 12-08 23:59 :00 No [id number] 1 tablet 2 TIMES DAILY 1 tablet 2 TIMES DAILY (route: oral) Med Classific ation: Analgesic , Anti-infl ammatory or Antipyret ic Probiotic (S.boulardi i) 250 mg capsule 12-17 00:00: 00 12-23 23:59 :00 No [id number] 1 capsule DAILY 1 capsule DAILY (route: oral) Med Classific ation: Gastroint estinal Therapy Agents tramadol 37.5 mg-acetamin ophen 325 mg tablet 12-17 00:00: 00 09-09 23:59 :00 No [id number] 1 tablet 3 TIMES DAILY 1 tablet 3 TIMES DAILY (route: oral) Med Classific ation: Analgesic , Anti-infl ammatory or Antipyret ic Novolog U-100 Insulin aspart 100 unit/mL subcutaneou s solution 12-13 00:00: 00 01-23 23:59 :00 No [id number] Per instruc tions NEEDED Per instructio ns NEEDED (route: subcutaneo us) Med Classific ation: Endocrine citalopram 20 mg tablet 12-11 00:00: 00 01-23 23:59 :00 No [id number] 1 tablet DAILY 1 tablet DAILY (route: oral) Med Classific ation: Central Nervous System Agents lamotrigine 25 mg tablet 12-11 00:00: 00 01-23 23:59 :00 No [id number] 1 tablet DAILY 1 tablet DAILY (route: oral) Med Classific ation: Central Nervous System Agents biotin 10,000 mcg capsule 01-24 00:00: 00 02-16 23:59 :00 No [id number] 1 capsule DAILY 1 capsule DAILY (route: oral) Med Classific ation: Electroly te Balance-N utritiona l Products clonidine HCl 0.1 mg tablet 01-23 00:00: 00 Yes [id number] 1-2 tablet BEDTIME 1-2 tablet BEDTIME (route: oral) Med Classific ation: Cardiovas cular Therapy Agents ferrous sulfate 325 mg (65 mg iron) tablet 01-23 00:00: 00 03-21 23:59 :00 No [id number] 1 tablet DAILY 1 tablet DAILY (route: oral) Med Classific ation: Electroly te Balance-N utritiona l Products Humalog U-100 Insulin 100 unit/mL subcutaneou s solution 01-24 00:00: 00 Yes [id number] 11 unit 3 TIMES DAILY 11 unit 3 [facility] Med Classific ation: Endocrine hydroxyzine HCl 25 mg tablet 01-24 00:00: 00 08-04 23:59 :00 No [id number] 2 tablet DAILY 2 tablet DAILY (route: oral) Med Classific ation: Central Nervous System Agents Lantus U-100 Insulin 100 unit/mL subcutaneou s solution 01-24 00:00: 00 Yes [id number] 20 unit BEDTIME 20 [facility] Med Classific ation: Endocrine leflunomide 20 mg tablet 01-24 00:00: 00 12-08 23:59 :00 No [id number] 1 tablet DAILY 1 tablet DAILY (route: oral) Med Classific ation: Analgesic , Anti-infl ammatory or Antipyret ic pregabalin 150 mg capsule 01-21 00:00: 00 09-16 23:59 :00 No [id number] 1 capsule DAILY 1 capsule DAILY (route: oral) Med Classific ation: Central Nervous System Agents Sudogest 30 mg tablet 01-24 00:00: 00 03-21 23:59 :00 No [id number] 1 tablet DAILY 1 tablet DAILY (route: oral) Med Classific ation: Respirato ry Therapy Agents tizanidine 4 mg capsule 01-24 00:00: 00 05-28 23:59 :00 No [id number] 1 capsule 3 TIMES DAILY 1 capsule 3 TIMES DAILY (route: oral) Med Classific ation: Locomotor System dextroamphe tamine-amph etamine 20 mg tablet 08-21 00:00: 00 03-30 23:59 :00 No [id number] 2 tablet DAILY 2 tablet DAILY (route: oral) Med Classific ation: Central Nervous System Agents Cymbalta 60 mg capsule,del ayed release 09-21 00:00: 00 05-28 23:59 :00 No [id number] 2 capsule DAILY 2 capsule DAILY (route: oral) Med Classific ation: Central Nervous System Agents Lyrica 150 mg capsule 09-21 00:00: 00 02-12 23:59 :00 No [id number] 1 capsule 2 TIMES DAILY 1 capsule 2 TIMES DAILY (route: oral) Med Classific ation: Central Nervous System Agents Lamictal 25 mg tablet 3-24 00:00: 00 09-09 23:59 :00 No [id number] 2 tablet DAILY 2 tablet DAILY (route: oral) Med Classific ation: Central Nervous System Agents Norvasc 10 mg tablet 3-24 00:00: 00 01-28 23:59 :00 No [id number] 1 tablet BEDTIME 1 tablet BEDTIME (route: oral) Med Classific ation: Cardiovas cular Therapy Agents Calcium 500 + D 500 mg-10 mcg (400 unit) chewable tablet 10-28 00:00: 00 05-05 23:59 :00 No [id number] 1 tablet 2 TIMES DAILY 1 tablet 2 TIMES DAILY (route: oral) Med Classific ation: Electroly te Balance-N utritiona l Products Fish Oil 1,000 mg (120 mg-180 mg) capsule 10-28 00:00: 00 Yes [id number] 1 capsule DAILY 1 capsule DAILY (route: oral) Med Classific ation: Cardiovas cular Therapy Agents atorvastati n 20 mg tablet 01-20 00:00: 00 Yes [id number] 1 tablet EVERY PM 1 tablet EVERY PM (route: oral) Med Classific ation: Cardiovas cular Therapy Agents folic acid 1 mg tablet 01-20 00:00: 00 02-12 23:59 :00 No [id number] 3 tablet DAILY 3 tablet DAILY (route: oral) Med Classific ation: Electroly te Balance-N utritiona [employer] Products Vitamin B-1 100 mg tablet 01-20 00:00: 00 Yes [id number] 1 tablet NOON 1 tablet NOON (route: oral) Med Classific ation: Electroly te Balance-N utritiona l Products duloxetine 30 mg capsule,del ayed release 2022-07 00:00: 00 06-07 23:59 :00 No [id number] 1 capsule DAILY 1 capsule DAILY (route: oral) Med Classific ation: Central Nervous System Agents duloxetine 60 mg capsule,del ayed release 2022-07 00:00: 00 Yes [id number] 1 capsule DAILY 1 capsule DAILY (route: oral) Med Classific ation: Central Nervous System Agents Lamictal 150 mg tablet 09-09 00:00: 00 12-08 23:59 :00 No 1 tablet DAILY 1 tablet DAILY (route: oral) Med Classific ation: Central Nervous System Agents tramadol 37.5 mg-acetamin ophen 325 mg tablet 09-09 00:00: 00 12-08 23:59 :00 No 2 tablet 3 TIMES DAILY 2 tablet 3 TIMES DAILY (route: oral) Med Classific ation: Analgesic , Anti-infl ammatory or Antipyret ic Lamictal 100 mg tablet 12-08 00:00: 00 02-16 23:59 :00 No 2 tablet DAILY 2 tablet DAILY (route: oral) Med Classific ation: Central Nervous System Agents trazodone 100 mg tablet 12-08 00:00: 00 02-16 23:59 :00 No 1 tablet BEDTIME 1 tablet BEDTIME (route: oral) Med Classific ation: Central Nervous System Agents Wellbutrin SR 100 mg tablet, 12 hr sustained-r elease 12-08 00:00: 00 02-19 23:59 :00 No 1 tablet DAILY 1 tablet DAILY (route: oral) Med Classific ation: Central Nervous System Agents Lyrica 50 mg capsule 02-11 00:00: 00 08-09 23:59 :00 No 2 capsule 2 TIMES DAILY 2 capsule 2 TIMES DAILY (route: oral) Med Classific ation: Central Nervous System Agents Claritin 10 mg tablet 02-16 00:00: 00 Yes 1 tablet DAILY 1 tablet DAILY (route: oral) Med Classific ation: Respirato ry Therapy Agents tramadol 50 mg tablet 02-16 00:00: 00 05-28 23:59 :00 No 1 tablet 4 TIMES DAILY 1 tablet 4 TIMES DAILY (route: oral) Med Classific ation: Analgesic , Anti-infl ammatory or Antipyret ic Tylenol Extra Strength 500 mg tablet 02-16 00:00: 00 Yes 2 tablet EVERY 6 HOURS 2 tablet EVERY 6 HOURS (route: oral) Med Classific ation: Analgesic , Anti-infl ammatory or Antipyret ic Acidophilus capsule 02-16 00:00: 00 11-30 23:59 :00 No 1 capsule DAILY 1 capsule DAILY (route: oral) Med Classific ation: Gastroint estinal Therapy Agents leflunomide 10 mg tablet 02-16 00:00: 00 05-28 23:59 :00 No 2 tablet DAILY 2 tablet DAILY (route: oral) Med Classific ation: Analgesic , Anti-infl ammatory or Antipyret ic Lamictal 150 mg tablet 02-16 00:00: 00 03-30 23:59 :00 No 1 tablet DAILY 1 tablet DAILY (route: oral) Med Classific ation: Central Nervous System Agents Lamictal 25 mg tablet 02-16 00:00: 00 03-30 23:59 :00 No 2 tablet DAILY 2 tablet DAILY (route: oral) Med Classific ation: Central Nervous System Agents prazosin 1 mg capsule 02-16 00:00: 00 Yes 1 capsule BEDTIME 1 capsule BEDTIME (route: oral) Med Classific ation: Cardiovas cular Therapy Agents bupropion HCl XL 150 mg 24 hr tablet, extended release 02-19 00:00: 00 06-07 23:59 :00 No 150 mg EVERY AM 150 mg EVERY AM (route: oral) Med Classific ation: Central Nervous System Agents prazosin 2 mg capsule 02-19 00:00: 00 Yes 2 mg BEDTIME 2 mg BEDTIME (route: oral) Med Classific ation: Cardiovas cular Therapy Agents Lamictal 200 mg tablet 03-31 00:00: 00 Yes 1 tablet DAILY 1 tablet DAILY (route: oral) Med Classific ation: Central Nervous System Agents Vyvanse 30 mg capsule 03-31 00:00: 00 08-04 23:59 :00 No 1 capsule DAILY 1 capsule DAILY (route: oral) Med Classific ation: Central Nervous System Agents leflunomide 20 mg tablet 2023-07 00:00: 00 Yes 1 tablet DAILY 1 tablet DAILY (route: oral) Med Classific ation: Analgesic , Anti-infl ammatory or Antipyret ic tizanidine 4 mg tablet 2023-07 00:00: 00 Yes 1 tablet 4 TIMES DAILY 1 tablet 4 TIMES DAILY (route: oral) Med Classific ation: Locomotor System tramadol 50 mg tablet 2023-07 00:00: 00 Yes 1 tablet EVERY 4 HOURS 1 tablet EVERY 4 HOURS (route: oral) Med Classific ation: Analgesic , Anti-infl ammatory or Antipyret ic bupropion HCl XL 300 mg 24 hr tablet, extended release 2023-07- 00:00: 00 Yes 1 tablet DAILY 1 tablet DAILY (route: oral) Med Classific ation: Central Nervous System Agents Vyvanse 40 mg capsule 1-23 00:00: 00 Yes 1 capsule DAILY 1 capsule DAILY (route: oral) Med Classific ation: Central Nervous System Agents pregabalin 225 mg capsule 1-27 00:00: 00 Yes 1 capsule 2 TIMES DAILY 1 capsule 2 TIMES DAILY (route: oral) Med Classific ation: Central Nervous System Agents Valium 5 mg tablet 6- 00:00: 00 Yes FOR ANXIETY 1 tablet 2 TIMES DAILY 1 tablet 2 TIMES DAILY (route: oral) Med Classific ation: Central Nervous System Agents Rinvoq 15 mg tablet,exte nded release 02-01 00:00: 00 Yes 1 tablet DAILY 1 tablet DAILY (route: oral) Med Classific ation: Analgesic , Anti-infl ammatory or Antipyret ic Vitamin D2 1,250 mcg (50,000 unit) capsule 02-01 00:00: 00 Yes 1 capsule WEEKLY 1 capsule WEEKLY (route: oral) Med Classific ation: Electroly te Balance-N utritiona l Products Wellbutrin XL 150 mg 24 hr tablet, extended release 02-01 00:00: 00 Yes 1 tablet DAILY 1 tablet DAILY (route: oral) Med Classific ation: Central Nervous System Agents Vital Signs Vital Name Observation Time Observation Value Commen ts Pulse 2025-02-14 15:11:00.000 62 /min Pulse 2025-02-12 20:28:00.000 62 /min Systolic Blood Pressure 2025-02-14 15:11:00.000 124 mm [Hg] Systolic Blood Pressure 2025-02-12 20:28:00.000 128 mm [Hg] Systolic Blood Pressure 2025-02-08 14:28:00.000 128 mm [Hg] Diastolic Blood Pressure 2025-02-14 15:11:00.000 62 mm [Hg] Diastolic Blood Pressure 2025-02-12 20:28:00.000 76 mm [Hg] Diastolic Blood Pressure 2025-02-08 14:28:00.000 60 mm [Hg] Plan of Treatment Planned Activity Planned Date Details Comments Future Scheduled Test SKILLED NU RSE TO EVALUATE PATIENT, IDENTIFY PRIMARY AND CO-MORBID CONDITIONS CODED PER CODING GUIDELINES, AND DEVELOP PATIENT SPECIFIC PLAN OF CARE THAT INCLUDES PATIENT GOAL FOR HOME HEALTH. [code = SKILLED NURSE TO EVALUATE PATIENT, IDENTIFY PRIMARY AND CO-MORBID CONDITIONS CODED PER CODING GUIDELINES, AND DEVELOP PATIENT SPECIFIC PLAN OF CARE THAT INCLUDES PATIENT GOAL FOR HOME HEALTH.] Future Scheduled Test SKILLED NU RSE TO PERFORM HOME SAFETY AND FALL ASSESSMENT AND PROVIDE INSTRUCTION TO IMPLEMENT HOME SAFETY AND FALL PREVENTION STRATEGIES. [code = SKILLED NURSE TO PERFORM HOME SAFETY AND FALL ASSESSMENT AND PROVIDE INSTRUCTION TO IMPLEMENT HOME SAFETY AND FALL PREVENTION STRATEGIES.] Future Scheduled Test SKILLED NU RSE FOR OBSERVATION AND ASSESSMENT OF PATIENTS PAIN LEVEL AND EFFECTIVENESS OF PAIN MANAGEMENT REGIMEN. SKILLED NURSE TO INSTRUCT PATIENT/CAREGIVER REGARDING PHARMACOLOGIC AND NON-PHARMACOLOGIC PAIN CONTROL MEASURES. SKILLED NURSE TO REPORT TO PHYSICIAN IF PAIN IS UNCONTROLLED WITH CURRENT PAIN MANAGEMENT REGIMEN. [code = SKILLED NURSE FOR OBSERVATION AND ASSESSMENT OF PATIENTS PAIN LEVEL AND EFFECTIVENESS OF PAIN MANAGEMENT REGIMEN. SKILLED NURSE TO INSTRUCT PATIENT/CAREGIVER REGARDING PHARMACOLOGIC AND NON-PHARMACOLOGIC PAIN CONTROL MEASURES. SKILLED NURSE TO REPORT TO PHYSICIAN IF PAIN IS UNCONTROLLED WITH CURRENT PAIN MANAGEMENT REGIMEN.] Future Scheduled Test SKILLED NU RSE TO ASSESS PATIENT'S SKIN INTEGRITY AND INSTRUCT PATIENT/CAREGIVER ON MEASURES TO PREVENT PRESSURE ULCERS. [code = SKILLED NURSE TO ASSESS PATIENT'S SKIN INTEGRITY AND INSTRUCT PATIENT/CAREGIVER ON MEASURES TO PREVENT PRESSURE ULCERS.] Future Scheduled Test PATIENT VALENCIA S A RISK OF HOSPITALIZATION AND ED USE. SKILLED NURSE TO ESTABLISH SUPPORT MEASURES TO MINIMIZE RISK OF HOSPITALIZATION AND ED USE, AND INSTRUCT PATIENT/CAREGIVER ON METHODS TO REDUCE AVOIDABLE HOSPITALIZATION AND ED USE. [code = PATIENT HAS A RISK OF HOSPITALIZATION AND ED USE. SKILLED NURSE TO ESTABLISH SUPPORT MEASURES TO MINIMIZE RISK OF HOSPITALIZATION AND ED USE, AND INSTRUCT PATIENT/CAREGIVER ON METHODS TO REDUCE AVOIDABLE HOSPITALIZATION AND ED USE.] Future Scheduled Test SKILLED NU RSE TO PROVIDE INSTRUCTION TO PATIENT/CAREGIVER RELATED TO DISCHARGE PLANNING. [code = SKILLED NURSE TO PROVIDE INSTRUCTION TO PATIENT/CAREGIVER RELATED TO DISCHARGE PLANNING.] Future Scheduled Test SKILLED NU RSE TO O/A OF PATIENTS MENTAL/BEHAVIORAL STATUS, ASSESS VITAL SIGNS 3XWEEKLY ALLOW 2 PRNS FOR MEDICATION MANAGEMENT. [code = SKILLED NURSE TO O/A OF PATIENTS MENTAL/BEHAVIORAL STATUS, ASSESS VITAL SIGNS 3XWEEKLY ALLOW 2 PRNS FOR MEDICATION MANAGEMENT.] Future Scheduled Test SKILLED NU RSE WILL MAINTAIN SITUATIONAL AWARENESS FOR SAFETY AND WILL NOTIFY CLINICAL UNIX SYSTEM ADMINISTRATOR AND PHYSICIAN/PROVIDER WITH ANY CHANGE IN CONDITION. [code = SKILLED NURSE WILL MAINTAIN SITUATIONAL AWARENESS FOR SAFETY AND WILL NOTIFY CLINICAL UNIX SYSTEM ADMINISTRATOR AND PHYSICIAN/PROVIDER WITH ANY CHANGE IN CONDITION.] Future Scheduled Test SKILLED NU RSE FOR O/A OF GENERAL HEALTH STATUS OF PAIN, CARDIAC, RESPIRATORY, GASTROINTESTINAL, GENITOURINARY, SKIN, NEUROLOGIC, ENDOCRINE SYSTEMS TO IDENTIFY CHANGES ASSOCIATED WITH EXACERBATION FOR EARLY INTERVENTION OF COMPLICATIONS 3XWEEKLY [code = SKILLED NURSE FOR O/A OF GENERAL HEALTH STATUS OF PAIN, CARDIAC, RESPIRATORY, GASTROINTESTINAL, GENITOURINARY, SKIN, NEUROLOGIC, ENDOCRINE SYSTEMS TO IDENTIFY CHANGES ASSOCIATED WITH EXACERBATION FOR EARLY INTERVENTION OF COMPLICATIONS 3XWEEKLY ] Future Scheduled Test SKILLED NU RSE TO REVIEW PATIENT MEDICATIONS. INSTRUCT PATIENT/CAREGIVER ON MONITORING OF EFFECTIVENESS, ADVERSE DRUG REACTIONS, SIDE EFFECTS OF ALL MEDICATIONS (PRESCRIPTION/-OTC), AND HOW AND WHEN TO REPORT PROBLEMS. [code = SKILLED NURSE TO REVIEW PATIENT MEDICATIONS. INSTRUCT PATIENT/CAREGIVER ON MONITORING OF EFFECTIVENESS, ADVERSE DRUG REACTIONS, SIDE EFFECTS OF ALL MEDICATIONS (PRESCRIPTION/-OTC), AND HOW AND WHEN TO REPORT PROBLEMS.] Future Scheduled Test SKILLED NU RSE TO ADMINISTER MEDICATIONS AND PRE-POUR MEDICATIONS 3XWEEKLY PER MEDICATION LIST. [code = SKILLED NURSE TO ADMINISTER MEDICATIONS AND PRE-POUR MEDICATIONS 3XWEEKLY PER MEDICATION LIST.] Future Scheduled Test SKILLED NU RSE FOR O/A AND SKILLED TEACHING RELATED TO MANAGEMENT OF DEPRESSIVE SYMPTOMS AND/OR DEPRESSION. SN TO REPORT SIGNIFICANT CHANGE IN DEPRESSIVE SYMPTOMS TO CLINICAL PROVIDER FOR EARLY INTERVENTION. [code = SKILLED NURSE FOR O/A AND SKILLED TEACHING RELATED TO MANAGEMENT OF DEPRESSIVE SYMPTOMS AND/OR DEPRESSION. SN TO REPORT SIGNIFICANT CHANGE IN DEPRESSIVE SYMPTOMS TO CLINICAL PROVIDER FOR EARLY INTERVENTION.] Future Scheduled Test SKILLED NU RSE FOR O/A OF PATIENT'S RISK FOR VIOLENCE (TOWARD SELF AND TO PROVIDE INTERVENTION TECHNIQUES TO PROMOTE SAFETY TO PATIENT AND OTHERS [code = SKILLED NURSE FOR O/A OF PATIENT'S RISK FOR VIOLENCE (TOWARD SELF AND TO PROVIDE INTERVENTION TECHNIQUES TO PROMOTE SAFETY TO PATIENT AND OTHERS] Future Scheduled Test SKILLED NU RSE TO ASSESS PATIENTS PSYCHOSOCIAL STATUS TO IDENTIFY POTENTIAL ISSUES THAT MAY COMPLICATE THE PROVISION OF THE PLAN OF CARE INCLUDING THE PATIENTS ABILITY TO ACCESS COMMUNITY RESOURCES AND PSYCHOSOCIAL SUPPORT SERVICES. [code = SKILLED NURSE TO ASSESS PATIENTS PSYCHOSOCIAL STATUS TO IDENTIFY POTENTIAL ISSUES THAT MAY COMPLICATE THE PROVISION OF THE PLAN OF CARE INCLUDING THE PATIENTS ABILITY TO ACCESS COMMUNITY RESOURCES AND PSYCHOSOCIAL SUPPORT SERVICES.] Future Scheduled Test MEDICATION S WILL BE HELD AND STORED IN LOCKBOX [code = MEDICATIONS WILL BE HELD AND STORED IN LOCKBOX] Future Scheduled Test SKILLED NU RSE FOR O/A AND TEACHING OF ENDOCRINE SYSTEM TO IDENTIFY CHANGES ASSOCIATED WITH EXACERBATION OF DIABETES FOR EARLY INTERVENTION OF COMPLICATIONS. [code = SKILLED NURSE FOR O/A AND TEACHING OF ENDOCRINE SYSTEM TO IDENTIFY CHANGES ASSOCIATED WITH EXACERBATION OF DIABETES FOR EARLY INTERVENTION OF COMPLICATIONS.] Future Scheduled Test SKILLED NU RSE FOR O/A AND TEACHING OF DIABETIC MANAGEMENT INCLUDING BLOOD SUGAR MONITORING/USE OF GLUCOMETER, DIABETIC DIET, LOWER EXTREMITY SKIN INSPECTION, PROPER SKIN/FOOT CARE, AND SIGNS AND SYMPTOMS HYPO/HYPERGLYCEMIA TO REPORT. [code = SKILLED NURSE FOR O/A AND TEACHING OF DIABETIC MANAGEMENT INCLUDING BLOOD SUGAR MONITORING/USE OF GLUCOMETER, DIABETIC DIET, LOWER EXTREMITY SKIN INSPECTION, PROPER SKIN/FOOT CARE, AND SIGNS AND SYMPTOMS HYPO/HYPERGLYCEMIA TO REPORT.] Goal 2024-02-06 Patient Goal - P T WILL BE COMPLIANT WITH MEDICATIONS AND AVOID SELF HARM Goal 2024-04-02 Patient Goal - P T WILL BE COMPLIANT WITH MEDICATIONS AND AVOID SELF HARM Goal 2024-06-04 Patient Goal - P T WILL BE COMPLIANT WITH MEDICATIONS AND AVOID SELF HARM Goal 2024-08-04 Patient Goal - P T WILL BE COMPLIANT WITH MEDICATIONS AND AVOID SELF HARM Goal 2024-09-29 Patient Goal - P T WILL BE COMPLIANT WITH MEDICATIONS AND AVOID SELF HARM Goal 2024-11-30 Patient Goal - P T WILL BE COMPLIANT WITH MEDICATIONS AND AVOID SELF HARM Goal 2025-01-28 Patient Goal - P T WILL BE COMPLIANT WITH MEDICATIONS AND AVOID SELF HARM Goal Patient Goal - P T WILL BE COMPLIANT WITH MEDICATIONS AND AVOID SELF HARM Goal Provider Goal - A PLAN OF CARE WILL BE ESTABLISHED THAT MEETS PATIENT'S FPC NEEDS AND INCLUDES PATIENT GOAL FOR HOME HEALTH. Goal Provider Goal - PATIENT/CAREGIVER WILL VERBALIZE/DEMONSTRATE EFFECTIVE HOME SAFETY AND FALL PREVENTION STRATEGIES THROUGHOUT CERTIFICATION PERIOD. Goal Provider Goal - PATIENT/CAREGIVER WILL DEMONSTRATE UNDERSTANDING OF PHARMACOLOGIC AND NONPHARMACOLOGIC PAIN CONTROL MEASURES AND PATIENT WILL HAVE IMPROVEMENT IN PAIN INTERFERING WITH ACTIVITY EVIDENCED BY PAIN AT A LEVEL THAT IS ACCEPTABLE TO THE PATIENT AND PAIN LEVEL WITHIN ESTABLISHED PARAMETERS BY END OF CERTIFICATION PERIOD. Goal Provider Goal - PATIENT/CAREGIVER WILL VERBALIZE UNDERSTANDING OF PRESSURE ULCER PREVENTION BY END OF THE EPISODE. Goal Provider Goal - PATIENT WILL HAVE SUPPORT MEASURES ESTABLISHED TO PREVENT HOSPITALIZATION AND ED USE AND PATIENT/CAREGIVER WILL VERBALIZE/DEMONSTRATE METHODS TO REDUCE AVOIDABLE HOSPITALIZATION AND ED USE BY END OF EPISODE. Goal Provider Goal - PATIENT/CAREGIVER WILL VERBALIZE UNDERSTANDING OF DISCHARGE PLANNING INSTRUCTIONS BY DATE OF DISCHARGE. Goal Provider Goal - ALTERED MENTAL/BEHAVIORAL STATUS WILL BE IDENTIFIED PROMPTLY AND INTERVENTION INITIATED QUICKLY TO MINIMIZE ASSOCIATED RISKS THROUGHOUT CERTIFICATION PERIOD. Goal Provider Goal - PATIENT WILL REMAIN SAFE IN THE COMMUNITY AND WILL BE FREE OF DANGER TO SELF AND OTHERS THROUGHOUT THE CERTIFICATION PERIOD. Goal Provider Goal - CHANGE IN GENERAL HEALTH STATUS WILL BE IDENTIFIED AND REPORTED TO PHYSICIAN FOR PROMPT INTERVENTION TO MINIMIZE ASSOCIATED RISKS THROUGHOUT CERTIFICATION PERIOD. Goal Provider Goal - PATIENT/CAREGIVER WILL VERBALIZE UNDERSTANDING OF EDUCATION PROVIDED ON MEDICATIONS BY THE END OF THE CERTIFICATION PERIOD. Goal Provider Goal - PATIENT WILL COMPLY WITH MEDICATION WHEN SKILLED NURSE ADMINISTERS AND PRE-POURS MEDICATION THROUGHOUT CERTIFICATION PERIOD. Goal Provider Goal - PATIENT WILL REMAIN SAFE WITHOUT DECOMPENSATION IN DEPRESSIVE CONDITION, WHILE MAINTAINING OPTIMAL LEVEL OF MENTAL HEALTH AND WELL BEING THROUGHOUT CERTIFICATION PERIOD. Goal Provider Goal - PATIENT WILL REMAIN SAFE IN COMMUNITY WITHOUT EVIDENCE OF INJURY/HARM TO SELF OR OTHERS THROUGHOUT CERTIFICATION PERIOD. Goal Provider Goal - PSYCHOSOCIAL NEEDS WILL BE IDENTIFIED AND PLAN IMPLEMENTED TO MINIMIZE RISK THROUGHOUT CERTIFICATION PERIOD. Goal Provider Goal - MEDICATION WILL BE STORED IN LOCKBOX FOR SAFETY. Goal Provider Goal - PATIENT/CAREGIVER WILL VERBALIZE SIGNS AND SYMPTOMS OF EXACERBATION OF DIABETES TO REPORT TO NURSE/PHYSICIAN THROUGHOUT THE CERTIFICATION PERIOD. Goal Provider Goal - PATIENT/CAREGIVER WILL VERBALIZE/DEMONSTRATE KNOWLEDGE OF DIABETIC MANAGEMENT. CHANGES IN DIABETIC STATUS WILL BE IDENTIFIED AND REPORTED TO PHYSICIAN FOR PROMPT INTERVENTION THROUGHOUT THE CERTIFICATION PERIOD. Encounters Start Date/Time End Date/Time Encounter Type Admission Type Attending [facility] Care Department Encounter ID Discharge Date Discharge Status Discharge Condition Discharge Reason Percent Goals Met 2025-02-01 00:00:00 2025-04-01 00:00:00 Outpatient RECERTIFIC RANDELL ARIZMENDI [facility] [id number] 14.7 1
== END 2025-02-16 15:31 | disposition home or self-care (01) ==
LOC: HO.RHES 14:54
PROVIDERS: PCP Nurse Practitioner Family; Visit Provider Student in an Organized Health Care Education/Training Program
DX: M45.0 Ankylosing spondylitis of multiple sites in spine (principal); M79.7 Fibromyalgia; Z79.622 Long term (current) use of Janus kinase inhibitor; Z51.81 Encounter for therapeutic drug level monitoring; Z79.69 Long term (current) use of other immunomodulators and immunosuppressants
CPT/HCPCS: 99214; G2211

== ENCOUNTER → 2025-02-16 14:53 | Outpatient (BNVA) | payer OTHER, SELFPAY | PROVIDERS: PCP Nurse Practitioner Family; Visit Provider Student in an Organized Health Care Education/Training Program | DX: M45.0 Ankylosing spondylitis of multiple sites in spine (principal); M79.7 Fibromyalgia; Z51.81 Encounter for therapeutic drug level monitoring; Z79.622 Long term (current) use of Janus kinase inhibitor; Z79.69 Long term (current) use of other immunomodulators and immunosuppressants | CPT/HCPCS: 99212 ==

== ENCOUNTER 2025-06-17 13:09 | Outpatient (AMB) | payer OTHER, SELFPAY ==
--- NOTE | 2025-06-17 13:32 | A.OFFVIS_ITS ---
Vital Signs 06/17/25 13:44 Height 5 ft Weight 155 lb 13.869 oz BMI 30.4 BP 115/64 Blood Pressure Location Lt brachial Position Sitting Pulse 81 Pulse Source Pulse Oximeter Pulse Oximetry (%) 98 Oxygen Delivery Method Room Air Intake Visit Reasons: Ankylosing Spondylitis Intake Note: Patient presents today for follow up and test results. Sanitary Inspector Required: No Accompanied by: Self / Same As Patient Allergies lisinopril (LISINOPRIL) Allergy (Mild, Verified 06/17/25 13:38) COUGH aspirin (ASA) Allergy (Unknown, Verified 06/17/25 13:38) GI UPSET Medication List - Last Reconciled 06/17/25 by Judit Hernandez MD amlodipine 10 mg PO DAILY atorvastatin 20 mg PO DAILY buprenorphine 20 mcg/hour 1 patch topical QWEEK bupropion HCl XL 300 mg PO DAILY calcium carbonate-vitamin D3 500 mg-10 mcg (400 unit) (Calcium 500 With D) 1 tab PO BID clonidine HCl 0.1 mg PO BID dextrose 40% (Glutose-15) grams PO dicyclomine 10 mg PO QID duloxetine (Cymbalta) 120 mg PO DAILY ferrous sulfate (Feosol) 325 mg PO DAILY fluticasone propionate 50 mcg/actuation 1 spray intranasal DAILY PRN folic acid 1 mg PO DAILY insulin aspart U-100 (Novolog FlexPen U-100 Insulin aspart) subcut ipratropium bromide intranasal lamotrigine 200 mg PO DAILY leflunomide 20 mg PO DAILY lisdexamfetamine 40 mg PO DAILY loperamide (Anti-Diarrheal (loperamide)) 0 mg PO loratadine 10 mg PO DAILY losartan 100 mg PO DAILY nabumetone 750 mg PO BID PRN norgestrel-ethinyl estradiol 0.3-30 mg-mcg (Cryselle (28)) 1 tab PO DAILY omega 1-uqc-xku-fish oil 300-1,000 mg 0 caps PO omeprazole 20 mg PO BID pregabalin (Lyrica) 225 mg PO BID sodium chloride 0.65% (Deep Sea Nasal) sprays intranasal tizanidine 4 mg PO QID 30 days topiramate mg PO upadacitinib ER (Rinvoq) 15 mg PO DAILY vitamin B complex-folic acid 0.4 mg 1 tab PO DAILY HPI Comments Details: Patient is a 43-year-old female with hypertension, hyperlipidemia, fibromyalgia and ankylosing spondylitis here today for follow up Interval History: Patient last seen 02/16/25 with me - on nabumetone, Rinvoq and leflunomide - Does not feel that the Rinvoq is helping - Complaining of brain fog and whole back pain especially low back - Wanted to start LDN but patient was on tramadol and could not start it Today - On Rinvoq 15mg daily, Nabumetone 750mg bid prn, Pregabalin 225mg bid, Leflunomide 20mg daily, Tizanidine 4mg qid - Pain noted across her lower back, in the neck and also with pain in the ribs - Overall doing okay, thinks the rinvoq is okay for now - Previously had trigger finger that was operated on but this is starting to hurt again - Tearful during appointment because she continues to experience pain but unsure of how to improve this Rheumatologic History: dx 2009 Cimzia 09/2018-to present Cosentyx - 09/2018 Arava -02/2018 - present Methotrexate- 12/2017 stopped due to mouth sores Sulfasalzine -08/2016-01/2017 Humira-failed Remicade-failed Lost to follow up 10/2022 --> 05/2024 Rinvoq 15mg 06/2024 Current Rheumatology Medication(s): Rinvoq 15mg daily, Nabumetone 750mg bid prn, Pregabalin 225mg bid, Leflunomide 20mg daily, Tizanidine 4mg qid [facility] Medical History (Updated 06/17/25 @ 14:04 by Judit Hernandez MD) Ethylene glycol poisoning HTN (hypertension) Fibromyalgia Ankylosing spondylitis Surgical History H/O oral surgery H/O wisdom tooth extraction Family History (Updated 06/17/25 @ 13:43 by PEDRO Petersen) Father HTN (hypertension) Psoriasis Prostate cancer Mother Colitis Sister Fibromyalgia Social History Alcohol intake: never Patient Tobacco Use Status: Former Tobacco user Review of Systems Narrative Review of Systems Constitutional: Denies fever, chills, weight loss ENT: Denies vision changes, eye pain or eye redness, dental caries, dry mouth GI: Denies nausea, vomiting, diarrhea, abdominal pain, change in BM Pulm: Denies SOB, PEÑA, hemoptysis, wheezing Cards: Denies chest pain, palpitations Skin: Denies Raynaud's, rash, nail changes, photosensitivity, PRISON CLASSIFICATION COUNSELOR: Denies headaches, weakness, paresthesias, recurrent falls MSK: as per HPI All other systems reviewed and are unremarkable except noted above Physical Exam Exam Exam: Vital signs reviewed Physical Examination CONSTITUITIONAL Patient tearful MSK Hands * Right Hand: Able to make a fist. No swelling or tenderness to palpation of these joints. * Left Hand: Able to make a fist. No swelling or tenderness to palpation of these joints. Wrists * Right Wrist: Full ROM. 70 degrees of wrist flexion, 80 degrees of wrist extension. No swelling or TTP * Left Wrist: Full ROM. 70 degrees of wrist flexion, 80 degrees of wrist extension. No swelling or TTP Elbows * Right Elbow: Full ROM. No swelling or TTP. No TTP of the medial and lateral epicondyles * Left Elbow: Full ROM. No swelling or TTP. No TTP of the medial and lateral epicondyles Shoulders * Decreased ROM Knees * Right knee: No swelling noted. No TTP of the knee joint lie or pes anserine bursa * Left knee: No swelling noted. No TTP of the knee joint lie or pes anserine bursa. Ankles * Right ankle: Good ankle dorsiflexion and plantar flexion. No swelling. No TTP of the ankle joint * Left ankle: Good ankle dorsiflexion and plantar flexion. No swelling. No TTP of the ankle joint Feet * Right foot: Negative squeeze test * Left foot: Negative squeeze test Tender points? * Tenderness to palpation of the bilateral trapezius, supraspinatus, anterior costochondral junctions, bilateral suboccipital muscle insertions Vital Signs: Last Vital Signs Pulse 81 06/17/25 13:44 BP 115/64 06/17/25 13:44 Pulse Ox 98 06/17/25 13:44 Oxygen Delivery Method Room Air 06/17/25 13:44 BMI result Body Mass Index 30.4 Results Reviewed Results Reviewed: Lab Ej 10/07/24 Lab Ej 04/29/25 WBC 6.7 Hb 10.3 Plt 302 BUN 20 Cr 0.93 eGFR 78 AST 12 ALT 14 ESR 42 27 CRP 14 4 Assessment & Plan Assessment & Plan (1) Ankylosing spondylitis: Comment: dx 2010 Cimzia 09/2018-09/2024. Not effective Cosentyx - 09/2018 Arava -02/2018- present Methotrexate- 12/2017 stopped due to mouth sores Sulfasalzine -08/2016-01/2017 Humira-failed Remicade-failed Rinvoq Code(s): M45.9 - Ankylosing spondylitis of unspecified sites in spine Category: Medical Qualifiers: Ankylosing spondylitis location: multiple sites in spine Qualified Code(s): M45.0 - Ankylosing spondylitis of multiple sites in spine Plan: #Ankylosing spondylitis Patient is a 44-year-old female with ankylosing spondylitis here today for follow up. Currently on Rinvoq and leflunomide. Inflammatory markers have normalized. She does note that when she stops the leflunomide she gets worsening hand pain. Based on the inflammatory markers I do think that she has low disease activity. It is possible that the pain that she continues to feel in her spine is due to damage and not due to active ankylosing spondylitis. Recommending that she follow up with pain management and we will get updated x-rays I spent a long time counseling patient and complicating her given that she was crying because of her continued pain despite immunosuppression. I informed her that her pain may be due to damage and not active disease. We will check object colt markers such as x-rays and send her back to pain management Plan - Continue Rinvoq 15mg daily - Continue nabumetone 750mg bid prn for pain - Continue leflunomide 20mg daily - XR SI joint, L spine, C spine, T spine - Refer to pain management - RTC 4 months - Labs before visit: CBC, CMP, ESR, CRP (2) Fibromyalgia: Code(s): M79.7 - Fibromyalgia Category: Medical Plan: #Fibromyalgia Patient with concomitant fibromyalgia. Plan - Continue Pregabalin 225mg bid - Continue Tizanidine 4mg tid (3) Long-term current use of Janus kinase inhibitor: Code(s): Z79.622 - intermediate project manager (current) use of Janus kinase inhibitor Plan: #Long-term Use of SAPNA inhibitor Rinvoq Discussed with patient the benefits and risks of SAPNA inhibitors for the management of the rheumatic condition Benefits include reduce pain, maintenance of remission and reduction of flares Risks include thromboembolic events, skin cancer and nonmelanoma skin cancers, other forms of cancer, cardiovascular alcohol and mortality Advise patient that they are to hold the medication and for up to 1 week after a febrile illness or an open skin wound (4) Encounter for monitoring leflunomide therapy: Code(s): Z51.81 - Encounter for therapeutic drug level monitoring; Z79.69 - shelter (current) use of other immunomodulators and immunosuppressants Plan: #Long-term leflunomide Discussed with patient the benefits and risks of leflunomide for managing the rheumatic condition Benefits include: - Reduced pain, maintenance of remission and reduction of flares Risks include: - GI upset especially diarrhea, skin rash, cytopenias, hepatotoxicity, weight loss, neuropathy Leflunomide is highly teratogenic. ?Has a very long half-life. ?Needs cholestyramine washout if there is desire for Initiation: ?CBC, BMP, LFTs, hepatitis-B and C serologies every 2-4 weeks for 3 months Monitoring: ?CBC, BMP, LFTs, hepatitis B and C serologies Plan I spent 40 minutes reviewing the record and labs, taking a history, examining the patient, discussing the treatment plan, counseling patient, ordering diagnostic work up and documenting in the medical record Orders: Orders C Reactive Protein 4 Months Z79.899 - [facility] [place] [facility] (current[facility] drug therapy Complete Blood Count Auto Diff 4 Months Z79.899 - [facility] [place] [facility] drug therapy Comprehensive Met. Panel 4 Months Z79.899 - Other [place] [facility]current) drug therapy Erythrocyte Sedimentation Rate 4 Months Z79.899 - Other [place] [facility]current[facility] drug therapy Coding Level of Care Code Est Pt Level 5 (24767) Complex visit Add On G2211 Diagnoses Ankylosing spondylitis of multiple sites in spine M45.0 Ankylosing spondylitis location: multiple sites in spine Fibromyalgia M79.7 Long-term current use of Janus kinase inhibitor Z79.622 Encounter for monitoring leflunomide therapy Z51.81; Z79.69
[2025-06-17 13:44] VITALS: BP 115/64; PULSE 81; O2SAT 98; BMI 30.4
== END 2025-06-17 14:32 | disposition home or self-care (01) ==
LOC: HO.RHES 13:09
PROVIDERS: PCP Nurse Practitioner Family; Visit Provider Student in an Organized Health Care Education/Training Program
DX: M45.0 Ankylosing spondylitis of multiple sites in spine (principal); M79.7 Fibromyalgia; Z79.622 Long term (current) use of Janus kinase inhibitor; Z51.81 Encounter for therapeutic drug level monitoring; Z79.69 Long term (current) use of other immunomodulators and immunosuppressants
CPT/HCPCS: 99215; G2211

== ENCOUNTER → 2025-06-17 13:09 | Outpatient (BNVA) | payer OTHER, SELFPAY | PROVIDERS: PCP Nurse Practitioner Family; Visit Provider Student in an Organized Health Care Education/Training Program | DX: M45.0 Ankylosing spondylitis of multiple sites in spine (principal); M79.7 Fibromyalgia; Z51.81 Encounter for therapeutic drug level monitoring; Z79.622 Long term (current) use of Janus kinase inhibitor; Z79.1 Long term (current) use of non-steroidal anti-inflammatories (NSAID); Z79.69 Long term (current) use of other immunomodulators and immunosuppressants | CPT/HCPCS: 99212 ==